=== PATIENT | male | born 1945 | race Caucasian/White ===

== ENCOUNTER 2019-02-03 08:12 | Inpatient (IN) | payer MEDICARE, OTHER ==
[~2019-02-03] VITALS: Ht 182.9 cm; Wt 83.9 kg
[~2019-02-03 08:12] MED LIST: ESOM20CA31 PO; HYDR-385 PO; HYDR-393 PO; LEVE250T63 PO; LEVE750T74 PO; LISI-362 PO; MULT-976 PO; ZOLP-1 PO
--- NOTE | 2019-02-03 08:15 | ER Report ---
History and Physical Time Seen By MD: 08:12 HPI/ROS CHIEF COMPLAINT: Abdominal pain, constipation HISTORY OF PRESENT ILLNESS: Patient is a 73-year-old male here with complaints of diffuse abdominal pain, constipation, inability to pass flatus since yesterday. Patient does have a history of appendectomy, cholecystectomy but denies prior history of bowel obstruction. Patient reports nausea and vomiting associated with his current symptoms. Patient is afebrile, hemodynamically stable at time of evaluation. REVIEW OF SYSTEMS: Constitutional: No fever, no chills. Eyes: No discharge. ENT: No sore throat. Cardiovascular: No chest pain, no palpitations. Respiratory: No cough, no shortness of breath. Gastrointestinal: Diffuse abdominal pain, nausea, vomiting Genitourinary: No hematuria. Musculoskeletal: No back pain. Skin: No rashes. Neurological: No headache. Allergies: Coded Allergies: No Known Drug Allergies (Unverified , 02/19/16) Home Meds Reported Medications Multivitamin (MULTIPLE VITAMINS) 1 Each Tablet, 1 EACH PO DAILY 02/11/16 Acetaminophen/Hydrocodone (HYDROCODON-ACETAMINOPHN 10-325) 1 Each Tab, 1-2 EACH PO Q4H PRN for PAIN, TAB 02/11/16 Esomeprazole Magnesium (NEXIUM) 20 Mg Capsule.dr, 1 CAP PO QDAY PRN for INDIGESTION, CAP 02/11/16 Lisinopril (LISINOPRIL) 10 Mg Tablet, 10 MG PO QDAY, TAB 02/11/16 Levetiracetam (KEPPRA) 750 Mg Tablet, 750 MG PO BID, TAB 02/11/16 Zolpidem Tartrate (AMBIEN) Unknown Strength Tablet, 1 TAB PO QHS, TAB 01/27/16 Hx Smoking: Yes (SMOKED 6 TO 8 YEARS, 1/2 PPD) Smoking Status: Never Smoker Exposure to Second Hand Smoke?: No Hx Alcohol Use: Yes Constitutional Vital Sign - Last 24 Hours 02/03/19 08:18 Temp 97.8 Pulse 94 Resp 16 B/P (MAP) 140/82 Pulse Ox 90 O2 Delivery Room Air Physical Exam General Appearance: The patient is alert, has no immediate need for airway protection and no signs of toxicity. Uncomfortable appearing Eyes: Pupils equal and round no pallor or injection. ENT, Mouth: Mucous membranes are moist. Respiratory: There are no retractions, lungs are clear to auscultation. Cardiovascular: Regular rate and rhythm. Gastrointestinal: Diffuse abdominal pain, mild distention, bowel sounds hypoactive Neurological: No focal neurological deficits on examination Skin: Warm and dry, no rashes. Musculoskeletal: Neck is supple non tender. Extremities are nontender, nonswollen and have full range of motion. DIFFERENTIAL DIAGNOSIS: After history and physical exam differential diagnosis was considered for abdominal pain including but not limited to appendicitis, cholecystitis, gastritis and urinary tract infection. Bowel obstruction Medical Decision Making Data Points Result Diagram: 02/03/19 0840 02/03/19 0840 Laboratory Hematology Test 02/03/19 08:40 White Blood Count 10.2 k/uL (4.5-11.0) Red Blood Count 4.43 M/uL (4.00-5.60) Hemoglobin 14.8 g/dL (14.0-18.0) Hematocrit 42.8 % (42.0-52.0) Mean Corpuscular Volume 96.5 fL (80.0-96.0) H Mean Corpuscular Hemoglobin 33.3 pg (26.0-33.0) H Mean Corpuscular Hemoglobin Concent 34.5 g/dL (32.0-36.0) Red Cell Distribution Width 13.5 % (11.5-14.5) Platelet Count 245 K/uL (150-450) Mean Platelet Volume 7.3 fL (7.2-11.1) Neutrophils (%) (Auto) 92.2 % (39.4-72.5) H Lymphocytes (%) (Auto) 3.7 % (17.6-49.6) L Monocytes (%) (Auto) 3.8 % (4.1-12.4) L Eosinophils (%) (Auto) 0.1 % (0.4-6.7) L Basophils (%) (Auto) 0.2 % (0.3-1.4) L Nucleated RBC Relative Count (auto) 0.1 /100WBC Neutrophils # (Auto) 9.4 K/uL (2.0-7.4) H Lymphocytes # (Auto) 0.4 K/uL (1.3-3.6) L Monocytes # (Auto) 0.4 K/uL (0.3-1.0) Eosinophils # (Auto) 0.0 K/uL (0.0-0.5) Basophils # (Auto) 0.0 K/uL (0.0-0.1) Nucleated RBC Absolute Count (auto) 0.01 K/uL Chemistry Test 02/03/19 08:40 Sodium Level 139 mmol/L (137-145) Potassium Level 4.8 mmol/L (3.5-5.0) Chloride Level 99 mmol/L (98-107) Carbon Dioxide Level 27 mmol/L (22-30) Blood Urea Nitrogen 27 mg/dl (9-21) Creatinine 1.60 mg/dl (0.66-1.25) Glomerular Filtration Rate Calc 42.8 Random Glucose 169 mg/dl (75-110) Lactate 2.0 mmol/L (0.7-2.1) Calcium Level 10.5 mg/dl (8.4-10.2) Total Bilirubin 1.1 mg/dl (0.2-1.3) Aspartate Amino Transf (AST/SGOT) 49 U/L (0-35) Alanine Aminotransferase (ALT/SGPT) 54 U/L (0-56) Alkaline Phosphatase 70 U/L (0-126) Total Protein 8.3 g/dl (6.3-8.2) Albumin 5.0 g/dl (3.5-5.0) Lipase 263 U/L (23-300) Urinalysis Test 02/03/19 08:13 Urine Color Anna Urine Clarity Slightly-cloudy Urine pH 5.0 pH (4.8-9.5) Urine Specific Dyer 1.030 Urine Protein 30 mg/dL (NEGATIVE) Urine Glucose (UA) Negative mg/dL (NEGATIVE) Urine Ketones Trace mg/dL (NEGATIVE) Urine Blood Negative (NEGATIVE) Urine Nitrite Negative (NEGATIVE) Urine Bilirubin Negative (NEGATIVE) Urine Urobilinogen Negative mg/dL (0.2-1.9) Urine Leukocyte Esterase Negative (NEGATIVE) Urine RBC 2 /HPF (0-2/HPF) Urine WBC 4 /HPF (0-5/HPF) Urine Squamous Epithelial Cells Few /LPF (</=FEW) Urine Bacteria Negative /HPF (NONE-FEW) Urine Hyaline Casts Few /LPF (NONE-FEW) Urine Mucus Few /HPF (NONE-FEW) EKG/Imaging Imaging Please see official radiology report. High-grade small bowel obstruction in the distal small bowel was identified ED Course/Re-evaluation ED Course Patient is a 73-year-old male here with complaints of diffuse abdominal pain, nausea, vomiting since yesterday. Patient is also complaining of obstipation, inability to keep down food or fluids. Patient is given IV fluid hydration, a nalgesia. CT imaging confirmed a high-grade small bowel obstruction with transition point in the distal small bowel. NG tube was placed for gastric decompression. I discussed the patient with Dr. Coffman who admitted the patient to surgery service for further treatment and care. I updated the patient regarding these findings. Rectal examination was completed and no masses were palpated in the distal rectum. Patient was hemodynamically stable at time of admission. Decision to Disposition Date: Feb 03, 2019 Decision to Disposition Time: 10:29 Depart Departure Latest Vital Signs Vital Signs Date Time Temp Pulse Resp B/P (MAP) Pulse Ox O2 Delivery O2 Flow Rate FiO2 02/03/19 08:18 97.8 94 16 140/82 90 Room Air Impression: Primary Impression: Small bowel obstruction Condition: Improved Disposition: Admitted from ER Referrals: STEVEN SILVA PA-C (PCP) ROHIT GRAVES DO Feb 03, 2019 08:15
[2019-02-03] MEDS ORDERED: NS(*) 0.9% 1000 ML BAG 1,000 ML IV ONE ×2 (08:26→11:20)
[2019-02-03] MEDS ORDERED: ONDANSETRON 4 MG/2 ML VIAL IVP ONE (08:30)
[2019-02-03] MEDS ORDERED: fentaNYL CITR 100 MCG/2 ML AMP IVP ONE (08:30)
[2019-02-03] MEDS ORDERED: IOPAMIDOL 76% 100 ML INFUS BTL 100 ML ONE (08:47)
[2019-02-03 08:54] LABS: PLATELET COUNT, AUTOMATED 245 K/uL (150-450)
[2019-02-03] MEDS ORDERED: HYDROMORPHONE HCL 1 MG/ML SYRINGE IVP ONE (10:00)
--- NOTE | 2019-02-03 10:30 | RADIOLOGY IMAGING REPORT ---
[place] [facility] [place] NAME: Seven Gold : 1945 MR: [id number] V: [id number] EXAM DATE: ORDERING PHYSICIAN: ROHIT GRAVES TECHNOLOGIST: Location: [facility] Patient: Seven Gold : 1945 Visit/Account:[id number] Date of Sevice: 02/03/2019 CT ABDOMEN PELVIS W/ CON HISTORY:abd pain, constipation TECHNIQUE: CT abdomen and pelvis with intravenous contrast. Contiguous axial images of the abdomen and pelvis was performed from the lung bases to the symphysis pubis. One of the following dose optimization techniques was utilized in the performance of this exam: Autom ated exposure control; adjustment of the mA and/or kV according to the patient's size; or use of an i terative reconstruction technique. Specific details can be referenced in the facility's radiology C T exam operational policy. CONTRAST: 75 cc of Isovue-370 COMPARISON: None. FINDINGS: Visualized lung bases: Atherosclerotic changes of the coronary vessels is noted. Subpleural interst itial changes at lung bases suggest mild underlying interstitial lung disease. Hepatobiliary: Gallbladder is absent. The biliary tree is prominent and the common bile duct measur es 9 mm the pancreas. No visualized choledocholithiasis. Differential diagnosis includes postcholec ystectomy change versus ampullary stenosis. Please correlate with biliary enzymes. Spleen: Negative. Adrenals: Negative. Kidneys/: Benign cyst superior pole right kidney measures 18 mm. Tiny nonobstructing stone is not ed lower pole left kidney. Pancreas: Negative. GI: Postoperative changes are noted from gastric bypass. There is a high-grade distal small bowel o bstruction with some twisting of the mesentery and a transition point in the distal small bowel. Fin dings are best appreciated on the coronal images 36 through 45. Findings could reflect a volvulus ve rsus adhesions. Small bowel loops are dilated up to 3.5 cm. No perforation or free fluid. Recommen d surgical consultation for management. The colon is relatively decompressed. Vessels/spaces/nodes: Atherosclerotic calcification is noted. Bones/soft tissues: Degenerative changes are noted the spine. IMPRESSION: 1. High-grade distal small bowel obstruction with twisting of the central mesentery concerning for a volvulus versus adhesion. No perforation, free air or free fluid. Recommend surgical consultation for management. 2. Postoperative changes noted from gastric bypass procedure. 3. Gallbladder is absent. Bile ducts are prominent in the common bile duct measures 9 mm at the hea d of pancreas. Findings could reflect ampullary stenosis versus postcholecystectomy change. Please correlate with biliary enzymes. Results were called to ROHIT GRAVES at 02/03/2019 10:22 AM. Report Dictated By: Johnson Nash MD at 02/03/2019 10:09 AM Report E-Signed By: Johnson Nash MD at 02/03/2019 10:22 AM WSN:[email or web address]
--- NOTE | 2019-02-03 10:37 | Gen Surgery History & Physical ---
History of Present Illness Chief Complaint Nausea, vomiting, and obstipation History of Present Illness 73 year old male presents to [facility] ED with nausea, vomiting, and obstipation. He is s/p gastric bypass, cholecystectomy, and appendectomy. He was thoroughly evaluated by Dr. Dunham including a CT scan that shows diffusely dilated SB though no focal transition point is noted and gas and stool in colon. NO dysuria, fever, or chills. He does take Boswell regularly. History Problems: (1) R.I.N.D. syndrome (2) S/P gastric bypass (3) S/P appendectomy (4) S/P cholecystectomy (5) Seizure disorder (6) Hypertension (7) GERD (gastroesophageal reflux disease) Status: Chronic Home Meds Reported Medications Multivitamin (MULTIPLE VITAMINS) 1 Each Tablet, 1 EACH PO DAILY 02/11/16 Acetaminophen/Hydrocodone (HYDROCODON-ACETAMINOPHN 10-325) 1 Each Tab, 1-2 EACH PO Q4H PRN for PAIN, TAB 02/11/16 Esomeprazole Magnesium (NEXIUM) 20 Mg Capsule.dr, 1 CAP PO QDAY PRN for INDIGESTION, CAP 02/11/16 Lisinopril (LISINOPRIL) 10 Mg Tablet, 10 MG PO QDAY, TAB 02/11/16 Levetiracetam (KEPPRA) 750 Mg Tablet, 750 MG PO BID, TAB 02/11/16 Zolpidem Tartrate (AMBIEN) Unknown Strength Tablet, 1 TAB PO QHS, TAB 01/27/16 Allergies: Coded Allergies: No Known Drug Allergies (Unverified , 02/19/16) Review of Systems All Systems Reviewed/Normal: Yes, Except as Noted Gastrointestinal: Nausea, Vomiting, Constipation Exam General Appearance: Alert, Awake, No Acute Distress, Afebrile Neuro: No Gross deficits Eyes: PERRLA ENT: Moist Mucous Membranes Cardiovascular: Normal Rhythm & Peripheral Pulses Respiratory: No Respiratory Distress, Clear to Auscultation GI: Other (Abdomen distended,soft, quiet, minimally tender diffusely) : No CVA Tenderness Lymph: No Adenopathy Extremities: Soft and Non Tender Psych: Alert & Oriented X3, Appropriate Mood & Affect Medical Decision Making Data Points Result Diagram: 02/03/19 0840 02/03/19 0840 EKG / Imaging Imaging CT abdomen and pelvis-dilated SB with air fluid levels,no transition point appreciated. Assessment and Plan Problems: (1) Small bowel obstruction Status: Acute Assessment & Plan: Will admit for NGT decompression and IV hydration Gastrograffin SBFT in am Recheck labs in am Time Spent: < 30 min Venous Thromboembolism VTE Risk Physician Assess for VTE Risk: Yes Patient's VTE Risk: Low VTE Diagnostic Test 2 Days Prior to Admit: No Antithrombotics Is Pt On Any Antithrombotics?: No Prophylaxis Tx Contraindicated Pharmacological Contraindicati: Pt at Low Risk for VTE Mechanical Contraindications: Pt at Low Risk for VTE MEME ANDRES MD Feb 03, 2019 10:37
--- NOTE | 2019-02-03 11:29 | RADIOLOGY IMAGING REPORT ---
FACILITY: [facility] PATIENT NAME: Seven Gold : 1945 MR: [id number] V: [id number] EXAM DATE: ORDERING PHYSICIAN: ROHIT GRAVES TECHNOLOGIST: Location: [facility] [place] Patient: Seven Gold : 1945 Visit/Account:[id number] Date of Sevice: 02/03/2019 CHEST SINGLE AP INDICATION: ngt placement COMPARISON: None available FINDINGS: Heart size within normal limits. A nasogastric tube terminates within the stomach. There is no focal infiltrate or lobar consolidation. There is no pneumothorax or pleural effusion. IMPRESSION: 1. Nasogastric tube terminates within the stomach. 2. No acute cardiopulmonary process Report Dictated By: Felipe Barry at 02/03/2019 11:21 AM Report E-Signed By: Felipe Barry at 02/03/2019 11:22 AM WSN:[id number]
[2019-02-03] MEDS ORDERED: LEVETIRACETAM 500 MG/100 ML 100 ML IVPB ONE (11:35)
--- NOTE | 2019-02-03 11:54 | RADIOLOGY IMAGING REPORT ---
FACILITY: [facility] - [place] PATIENT NAME: Seven Gold : 1945 MR: [id number] V: [id number] EXAM DATE: ORDERING PHYSICIAN: MEME ANDRES TECHNOLOGIST: Location: [facility] - [place] Patient: Seven Gold : 1945 Visit/Account:[id number] Date of Sevice: 02/03/2019 CHEST SINGLE AP AP upright portable 11:20 AM COMPARISON: 02/03/2019 11:02 AM HISTORY: NGT placement FINDINGS: CARDIAC/VASC: No cardiac silhouette abnormality or cardiomegaly. Unremarkable pulmonary vasculatu re. MEDIASTINUM: Granulomatous calcification at the left pulmonary hilum indicative of previous healed i nfection. Mild atherosclerotic aortic arch calcifications. LUNGS/PLEURA: No pneumothorax. No significant pulmonary parenchymal abnormalities. No costophrenic angle blunting to suggest a large effusion. BONES: No fracture or visible bony lesion. Lateral endplate spurring, thoracic spine. OTHER: Nasogastric tube tip unchanged in position, proximal stomach, just distal to the gastric cardi a. There are cholecystectomy clips in the right upper quadrant. IMPRESSION: Stable position of the nasogastric tube compared to earlier today, tip in the proximal stomach just d istal to the gastric cardia. Report Dictated By: Ari Dietz at 02/03/2019 11:45 AM Report E-Signed By: Ari Dietz at 02/03/2019 11:46 AM WSN:[id number]
--- NOTE | 2019-02-03 12:00 | NUR ---
Per Carolyne TERRAZAS to bring meds in d/t patient unsure of doses Addendum: 02/03/19 at 2056 by ZAKI GUPTA RN Amended: Links added.
[2019-02-03] MEDS ORDERED: MORPHINE 2 MG/ML SYR IVP PRN (13:15)
--- NOTE | 2019-02-03 13:34 | NUR ---
NG Placed in ED at 53cm. Arrived to floor at 35cm, unable to auscultate. Advanced to 53cm, auscultated, taped to nose. notified, did not want another x-ray to confirm placement as he knows 53cm is correct. Addendum: 02/03/19 at 1336 by ZAKI GUPTA RN Amended: Links added.
[2019-02-03] MEDS ORDERED: HYDROMORPHONE HCL 1 MG/ML SYRINGE IVP PRN (15:05)
[2019-02-03] MEDS ORDERED: LIDOCAINE 5% PATCH TP SCH (15:05)
[2019-02-03] MEDS: KCL/DNS 20 MEQ/1000 ML PREMIX 1,000 ML IV PRN (15:42)
[2019-02-03 16:00] VITALS: BP 124/62
[2019-02-03] MEDS: HYDROmorphone* 1 MG/ML 1 MG/ML ML IVP PRN ×2 (16:12→20:22)
[2019-02-03 19:30] VITALS: BP 149/82
[2019-02-03] MEDS: LEVETIRACETAM 500 MG/100 ML 100 ML IVPB SCH (20:45)
[2019-02-03] MEDS: PATCH REMOVAL 1 EA TP SCH (20:45)
[2019-02-03] MEDS ORDERED: diphenhydrAMINE 50 MG/ML VIAL IVP PRN (22:15)
[2019-02-03 23:47] VITALS: BP 157/82
[2019-02-04] VITALS (10 sets, daily range): BP systolic 77–146; BP diastolic 64–88
[2019-02-04] MEDS ORDERED: BENZOCAINE/TETRACAINE/BUTAMBEN ONE (00:09)
--- NOTE | 2019-02-04 00:15 | NUR ---
Per Patient NG tube "fell out after sneezing fit". NG tube reinserted into right nare and auscultated for correct placement at 53cm per provider telephone order. Provider called for order for chest xray to verify correct placement. Provider did not order x-ray for placement d/t xray scheduled at 0500 this morning. Patient complained of chest pain and shortness of breath, so stat xray was ordered. NG removed due to incorrect placement. Patient refused to have another NG tube placed until morning so he could sleep. Patient wanted to be left alone for the rest of the night and refused vitals and reinsertion of NG tube. Provider notified of patient wishes.
--- NOTE | 2019-02-04 00:30 | RADIOLOGY IMAGING REPORT ---
FACILITY: [facility] PATIENT NAME: Seven Gold : 1945 MR: [id number] V: [id number] EXAM DATE: ORDERING PHYSICIAN: MEME ANDRES TECHNOLOGIST: Location: [facility] Patient: Seven Gold : 1945 Visit/Account:[id number] Date of Sevice: 02/03/2019 Study: Single portable view of the chest. Indication: Nasogastric tube placement. Comparison study: None. Technique: Single AP view of the chest demonstrates no evidence of acute infiltrate. There is no evid ence of pleural effusion or pneumothorax. The mediastinal, cardiac, and diaphragmatic contours are un remarkable. There is a nasogastric tube present. The tip of the catheter is within a right lower lobe pulmonary b ronchus. The report was called into the patient's nurse, the nasogastric tube had already been withdrawn. IMPRESSION: Nasogastric tube within bronchial system. No evidence of acute cardiopulmonary abnormalit y. Report Dictated By: Francis Salmon at 02/04/2019 12:19 AM Report E-Signed By: Francis Salmon at 02/04/2019 12:23 AM WSN:[id number]
[2019-02-04] MEDS: HYDROmorphone* 1 MG/ML 1 MG/ML ML IVP PRN ×3 (00:31→13:02)
[2019-02-04] MEDS: ONDANSETRON 4 MG/2 ML VIAL IVP PRN ×3 (00:38→13:04)
[2019-02-04] MEDS: KCL/DNS 20 MEQ/1000 ML PREMIX 1,000 ML IV PRN ×3 (00:38→23:39)
[2019-02-04 05:11] LABS: PLATELET COUNT, AUTOMATED 198 K/uL (150-450)
--- NOTE | 2019-02-04 07:18 | RADIOLOGY IMAGING REPORT ---
FACILITY: [facility] - [place] PATIENT NAME: Seven Gold : 1945 MR: [id number] V: [id number] EXAM DATE: ORDERING PHYSICIAN: MEME ANDRES TECHNOLOGIST: Location: [facility] - [place] Patient: Seven Gold : 1945 Visit/Account:[id number] Date of Sevice: 02/04/2019 ADDENDUM #1 ADDENDUM: Plain x-rays were obtained for this study. The plain x-rays right. This is a report for the small bow el follow-through. INDICATION: Small bowel obstruction. FINDINGS: Dry Plasterer Helper image shows multiple dilated loops of small bowel. Patient was administered oral cont rast. Sequential imaging of the abdomen was obtained. Contrast does move through the small bowel. How ever after 2 1/2 hours there is still contrast in the small bowel loops to the mid part of the distal small bowel. No contrast seen in the colon. A 7.15 hour film was obtained. There is contrast seen wi thin the small bowel and in the distal portion the small bowel. However no definite contrast is seen in the right colon. IMPRESSION: Small bowel obstruction, likely in the distal aspect of the distal small bowel. No defini te contrast is seen in the right colon at 7.15 hour. I called report to MEME ANDRES at 02/04/2019 4:54 PM. Report Dictated By: Johnson Langston at 02/04/2019 4:47 PM Report E-Signed By: Johnson Langston at 02/04/2019 4:56 PM ORIGINAL REPORT Study: XR SMALL BOWEL SERIES Indication: Pain Comparison study: None available Findings: Upright and supine views of the abdomen demonstrates the presence of numerous dilated loops of small bowel. There are differential air-fluid levels present. This is most consistent with a smal l bowel obstruction. There is no evidence of pneumoperitoneum. The patient is status post abdominal surgery. IMPRESSION: Study consistent with small bowel obstruction. There is no evidence of pneumoperitoneum. Report Dictated By: Francis Salmon at 02/04/2019 6:58 AM Report E-Signed By: Francis Salmon at 02/04/2019 7:11 AM WSN:[id number]
--- NOTE | 2019-02-04 07:28 | RADIOLOGY IMAGING REPORT ---
FACILITY: [facility] PATIENT NAME: Seven Gold : 1945 MR: [id number] V: [id number] EXAM DATE: ORDERING PHYSICIAN: MEME ANDRES TECHNOLOGIST: Location: [facility] - [place] Patient: Seven Gold : 1945 Visit/Account:[id number] Date of Sevice: 02/04/2019 Study: Upright and supine views of the abdomen Indication:Abdominal pain Comparison: None Findings: Upright and supine views of the abdomen demonstrates presence of numerous dilated loops of small bowel with differential air-fluid levels. This is consistent with a small bowel obstruction. Th ere is no evidence of pneumoperitoneum. The patient is status post epigastric surgery, cholecystectomy and surgery within the right lower kristin drant. There is no evidence of significant bony abnormality. IMPRESSION: Study consistent with small bowel obstruction. There is no evidence of pneumoperitoneum. Report Dictated By: Francis Salmon at 02/04/2019 7:20 AM Report E-Signed By: Francis Salmon at 02/04/2019 7:21 AM WSN:[id number]
[2019-02-04] MEDS ORDERED: DIATRIZOATE MEGL/DIATRIZOA SOD 367 MG/ML SOLN ONE ×2 (07:38→07:44)
[2019-02-04] MEDS: LEVETIRACETAM 500 MG/100 ML 100 ML IVPB SCH ×2 (08:52→22:21)
[2019-02-04] MEDS: ENOXAPARIN 40 MG/0.4ML SYR SC SCH (09:07)
[2019-02-04] MEDS: PATCH REMOVAL 1 EA TP SCH (09:13)
--- NOTE | 2019-02-04 10:12 | General Surgery Progress Note ---
Subjective Progress Notes Subjective "I feel miserable" No flatus or BM. Denies any vomiting since admission. His NGT came out and he refuses to have another. Refused David. Patient Complains of: Gastrointestinal: Nausea Musculoskeletal: Other (chronic back pain) Physical Exam Vital Signs Date Time Temp Pulse Resp B/P (MAP) Pulse Ox O2 Delivery O2 Flow Rate FiO2 02/04/19 08:04 98.0 70 17 132/88 (103) 91 Room Air 02/03/19 23:47 1.0 Intake and Output 02/04/19 07:03 Intake Total 1510 ml Output Total 925 ml Balance 585 ml Intake IV Total 1510 ml Output Urine Total 725 ml Gastric Drainage Total 200 ml General Appearance: Alert, Awake, No Acute Distress, Afebrile Neuro: No Gross deficits ENT: Moist Mucous Membranes Cardiovascular: Regular Rate and Rhythm Respiratory: No Respiratory Distress, Clear to Auscultation GI: Other (Abdomen remains distended and quiet, diffuse tenderness, no rebound or percussion tenderness) Extremities: Soft and Non Tender Psych: Alert & Oriented X3, Other (belligerent) Result Diagram: 02/04/19 0455 02/04/19 0455 Creatinine back to 1.0 Imaging SBFT in process Assessment and Plan Problems: (1) Small bowel obstruction Status: Acute Assessment & Plan: 02/03/19: Will admit for NGT decompression and IV hydration. Gastrograffin SBFT in am. Recheck labs in am. 02/04/19: Patient reports NGT came out last night when he sneezed. Refused to have another put in. No further vomiting, but remains nauseated without any flatus or BM. He did not like morphine, so switched to Dilaudid for his chronic back pain for which he routinely takes 6 Sawyer per day for past several years. He does appear better hydrated with IVF's with creatinine back to 1.0 from 1.6. Urine output improved. He has no peritoneal signs at this time. WBC is WNL. The SBFT is in progress. I discussed in detail with Seven that if this does not resolve with nonoperative management that surgery will indeed be needed. We discussed the typical causes of mechanical obstruction as well as the fact his chronic narcotic use may be playing a role. I encouraged him to try to walk several times today. Will continue close observation through out the day. If no contrast to colon by 8 hours or if peritoneal signs develop then I will recommend exploratory laparotomy. (2) Seizure disorder Status: Chronic Assessment & Plan: Continue his Keppra IV until able to take PO again. Time Spent: > 30 min Exam Sepsis Risk: No Definite Risk MEME ANDRES MD Feb 04, 2019 10:12
--- NOTE | 2019-02-04 10:48 | Medical Nutrition Therapy ---
Nutrition Anthropometrics Height (Inches): 72.00 Height (Calculated Centimeters: 182.334212 Weight (Pounds): 169 Weight (Calculated Kilograms): 76.657 Duane Nutrition Score: Adequate Duane Nutrition Risk Score: 19 Dietary Referral Nutrition Risk Factors: Nutrition Risk Comment: Physical Findings Physical Appearance: 22.9kg/m2 Skin Appearance Skin Appearance: Edema Edema Location Modifier: Edema Location: Type of Edema: Degree of Edema: Gastrointestinal Symptoms GI Symtoms: Constipation, Change in Bowel Pattern Tube Present: NG Bowel Sounds: Recent Bowel Pattern: Stool Characteristics: Nutritional Diagnosis Nutritional Risk Acuity 1: GI Obstruction Past Medical History: RIND, gastric bypass, appendectomy, cholecystectomy, seizure disorder, HTH, and GERD. Nutritional Acuity: 1-High Nutrition Diagnosis: Altered GI Function Nutrition Etiology: Physiological Causes Nutrition Problem/Etiology/Sym: Altered GI function as related to physiological causes as evidenced by SBO. Energy Requirement: 2045 (m st jeor x 1.1 x1.2) Protein Requirement: 60.8 (0.8 g/kg) Fluid Requirement: 2045 (1ml/1kcal) Diet Type: NPO/Ice Chips Only Nutrition Monitoring & Eval Nutritional Goals Comment: Progress to BABITA as tolerated. RD Patient Assessment Time: [address] Assessment Type: RD Assessment Patient Nutrition Acuity: 1-High Follow Up Date: Feb 06, 2019 Nutritional Comment: pt admitted with N/V/obstipation. Dx with small bowel obstruction. Hx of RIND, gastric bypass, appendectomy, cholecystectomy, seizure disorder, HTH, and GERD. Currently NPO/Ice chips only day 1. Pt taking enoxaparin. BUN and creatinine were elevated but have decreased to WNL. CRP of 1.0 is elevated, as is AST of 38. Total protein of 5.8 and albumin of 3.4 are decreased. Monitor for progression of diet. -HAYDEN BUTTS Feb 04, 2019 10:48
[2019-02-04] MEDS ORDERED: TAMS0.4C25 PO (11:11)
[2019-02-04] MEDS ORDERED: ZOLP12.548 PO (11:11)
[2019-02-04] MEDS ORDERED: ZOLP-350 PO (11:11)
[2019-02-04] MEDS ORDERED: LAMO100T5 PO (11:11)
[2019-02-04] MEDS ORDERED: DOXE10CA25 PO (11:11)
[2019-02-04] MEDS ORDERED: BISACODYL 10 MG SUPP ONE (16:14)
[2019-02-04] MEDS ORDERED: BISACODYL 10 MG SUPP PR ONE (16:15)
[2019-02-04] MEDS ORDERED: FAMOTIDINE(*) 20MG/50ML PREMIX 50 ML IVPB ONE (17:05)
[2019-02-04] MEDS ORDERED: NORMOSOL R SOLN(*) 1000 ML BAG 1,000 ML IV ONE (17:05)
--- NOTE | 2019-02-04 17:13 | General Surgery Progress Note ---
Subjective Progress Notes Subjective Still no flatus or BM, now with increasing abdominal pain Physical Exam Vital Signs Date Time Temp Pulse Resp B/P (MAP) Pulse Ox O2 Delivery O2 Flow Rate FiO2 02/04/19 15:50 98.6 93 20 132/80 (97) 88 Room Air 02/04/19 11:02 1.0 Intake and Output 02/04/19 07:03 Intake Total 1510 ml Output Total 925 ml Balance 585 ml Intake IV Total 1510 ml Output Urine Total 725 ml Gastric Drainage Total 200 ml General Appearance: Alert, Awake, Afebrile GI: Other (Abdomen more distended, generalized tenderness, some percussion tenderness now, BS quiet) Result Diagram: 02/04/19 0455 02/04/19 0455 Assessment and Plan Problems: (1) Small bowel obstruction Status: Acute Assessment & Plan: 02/03/19: Will admit for NGT decompression and IV hydration. Gastrograffin SBFT in am. Recheck labs in am. 02/04/19: Patient reports NGT came out last night when he sneezed. Refused to have another put in. No further vomiting, but remains nauseated without any flatus or BM. He did not like morphine, so switched to Dilaudid for his chronic back pain for which he routinely takes 6 [place] per day for past several years. He does appear better hydrated with IVF's with creatinine back to 1.0 from 1.6. Urine output improved. He has no peritoneal signs at this time. WBC is WNL. The SBFT is in progress. I discussed in detail with Seven that if this does not resolve with nonoperative management that surgery will indeed be needed. We discussed the typical causes of mechanical obstruction as well as the fact his chronic narcotic use may be playing a role. I encouraged him to try to walk several times today. Will continue close observation through out the day. If no contrast to colon by 8 hours or if peritoneal signs develop then I will recommend exploratory laparotomy. 02/04/19: Gastrografin SBFT carried out to 71/2 hours without contrast to colon. In light of this finding and increased tenderness I have recommended to Seven that we proceed with exploratory laparotomy, lysis of adhesions, and indicated procedures. He understands this may include the need for a bowel resection. I have reviewed the procedure, risks, and possible complications in detail with him. He understands he will have a NG tube and David catheter in place when he awakens from anesthesia. Informed consent obtained. OR crew and anesthesia notified by oracle data warehouse developer. Zosyn 4.5 grams IVPB ordered. (2) Seizure disorder Status: Chronic Assessment & Plan: Continue his Keppra IV until able to take PO again. Time Spent: > 30 min Exam Sepsis Risk: No Definite Risk MEME ANDRES MD Feb 04, 2019 17:13
[2019-02-04] MEDS ORDERED: fentaNYL CITR 250 MCG/5 ML AMP ONE (17:39)
[2019-02-04] MEDS ORDERED: PROPOFOL EMUL(*) 10MG/ML 20 ML 20 ML ONE (17:40)
[2019-02-04] MEDS ORDERED: LIDOCAINE 2% IV 100 MG/5ML SYR ONE (17:40)
[2019-02-04] MEDS ORDERED: ROCURONIUM BR 10 MG/ML 5 ML SY 5 ML ONE ×2 (17:41→18:34)
[2019-02-04] MEDS ORDERED: SUCCINYLCHOL CHL 100MG/5ML SYR IVP ONE (17:41)
[2019-02-04] MEDS ORDERED: PIPERACILLIN/TAZO* 4.5 GM VIAL 4.5 GM in NS(*) 0.9% 100 ML MINI-BAG 100 ML IVPB ONE (18:00)
[2019-02-04] MEDS ORDERED: ONDANSETRON 4 MG/2 ML VIAL ONE (18:06)
[2019-02-04] MEDS ORDERED: DEXAMETHASONE SOD 4 MG/ML VIAL ONE (18:06)
[2019-02-04] MEDS ORDERED: KETAMINE HCL 200 MG/20 ML MDV ONE ×2 (18:09→19:11)
[2019-02-04] MEDS ORDERED: SUGAMMADEX SOD 200 MG/2 ML SDV ONE (18:10)
[2019-02-04] MEDS ORDERED: HYDROmorphone HCL 2 MG/ML SDV ONE (18:28)
[2019-02-04] MEDS ORDERED: ACETAMINOPHEN(*)1000 MG/100 ML 100 ML IVPB ONE (19:56)
--- NOTE | 2019-02-04 20:16 | Post Operative Progress Note ---
Post Operative Progress Note Date: Feb 04, 2019 Time: 20:11 Surgeon: Augustus Tool Repair Technician: PRAVEEN Mckinney Anesthesia: MD Jerad Pre-Op Diagnosis: SBO Post-Op Diagnosis: same secondary to adhesions Findings: Dense adhesive band across distal ileum Procedure(s): Exploratory laparotomy and lysis of adhesions Specimen Removed:(May be N/A): none Complications: none Fluids: 2000ml Estimated Blood Loss: 50 ml EBL, 3500 ml of NG output Date OP Note Dictated: Feb 04, 2019 Time OP Note Dictated: 20:13 MEME ANDRES MD Feb 04, 2019 20:16
[2019-02-04] MEDS ORDERED: MEPERIDINE HCL 50 MG/ML SDV 50 MG/ML VIAL ONE (20:20)
[2019-02-04] MEDS ORDERED: fentaNYL CITR 100 MCG/2 ML AMP ONE (20:42)
[2019-02-04] MEDS ORDERED: LIDOCAINE 5% PATCH TP SCH (21:00)
[2019-02-04] MEDS: HYDROMORPHON PCA10MG/50ML(CII) 10 MG/50 ML PLAST..BAG IV PRN (21:45)
--- NOTE | 2019-02-04 21:55 | OPERATIVE REPORT 1 ---
EVENT DATE: February 04, 2019 SURGEON: Jim Coffman MD ANESTHESIOLOGIST: Oswald Aviles MD ANESTHESIA: General endotracheal anesthesia. PREOPERATIVE DIAGNOSIS Small bowel obstruction. POSTOPERATIVE DIAGNOSIS Small bowel obstruction secondary to adhesions. PROCEDURES PERFORMED 1. Exploratory laparotomy. 2. Lysis of adhesions. PROCEDURE IN DETAIL Mr. Gold was taken to the operating room and placed in the supine position. After induction of adequate general endotracheal anesthesia, a David catheter was placed. The abdomen was then prepped and draped in the usual sterile fashion. Timeout was taken. The patient had received Zosyn 4.5 g IV prior to surgery. Attention was then turned to the midline where a midline incision was made through the skin and subcutaneous tissue. This was carried down to midline fascia. The midline fascia was then incised. Using Leslie clamps to retract the fascia superiorly and anteriorly, the peritoneum was entered. The peritoneum was opened with Bovie cauterization. The bowel was markedly distended. Very carefully the bowel was slowly eviscerated from the peritoneal cavity. There was obvious obstruction involving the distal ileum. There was a dense adhesive band between the root of mesentery where the Hussein limb was going up in an antecolic fashion. This was taken down with Bovie cauterization. In addition, an adhesive band between the site of previous appendectomy and root of mesentery was taken down. This then freed this point of obstruction. A nasogastric tube was then inserted by Anesthesia. This was positioned down through the gastric pouch and Hussein limb. The small bowel was gradually decompressed with 3500 mL of succus evacuated via the nasogastric tube. With the small bowel decompressed, a general exploration was then begun at the ligament of Treitz. The Hussein-en-y limb appeared viable. The afferent portion of this was also noted to be decompressed. The small bowel was then run distally, and the point of obstruction was noted to be completely freed with free flow of succus beyond this into the cecum. The colon was carefully palpated. There was no evidence of colon masses appreciated. The colon appeared to pass easily under this Hussein limb. Attention was then turned to the Hussein limb, which was carefully run up to the gastric pouch. This also appeared now decompressed and viable. The peritoneal cavity was then irrigated with several liters of saline. Adequate hemostasis was confirmed. The cecum was carefully placed back in the right lower quadrant, and the small bowel was then returned to the peritoneal cavity in its anatomic fashion with no twists. The fascia was then closed with a simple running #1 Prolene suture. Using 0.5% Marcaine with epinephrine, the anterior abdominal wall was infiltrated with local anesthesia for postop pain control. The skin and subcutaneous tissue were irrigated. Adequate hemostasis confirmed. The skin was reapproximated with yosef. Sterile dressing was applied. Final sponge, instrument, and needle counts were correct times two. Mr. Gold tolerated this well, was taken to the PACU in stable condition. He will be admitted back to the Med/Surg Unit for continued postoperative care. RUTHANN
[2019-02-05 02:00] VITALS: BP 113/72
[2019-02-05] MEDS: ACETAMINOPHEN(*)1000 MG/100 ML 100 ML IVPB SCH ×5 (02:44→23:44)
[2019-02-05 03:00] VITALS: BP 103/75
[2019-02-05 05:52] LABS: PLATELET COUNT, AUTOMATED 195 K/uL (150-450)
[2019-02-05 05:56] VITALS: BP 111/70
[2019-02-05] MEDS: KCL/DNS 20 MEQ/1000 ML PREMIX 1,000 ML IV PRN ×3 (07:21→22:28)
[2019-02-05] MEDS ORDERED: PATCH REMOVAL 1 EA TP SCH (09:00)
[2019-02-05 09:31] VITALS: BP 123/73
[2019-02-05] MEDS: ENOXAPARIN 40 MG/0.4ML SYR SC SCH (09:41)
[2019-02-05] MEDS: PANTOPRAZOLE SOD 40 MG IV VIAL IVP SCH (09:41)
[2019-02-05] MEDS: LEVETIRACETAM 500 MG/100 ML 100 ML IVPB SCH ×2 (09:41→20:43)
--- NOTE | 2019-02-05 10:43 | General Surgery Progress Note ---
Subjective Progress Notes Subjective Feeling better, no new complaints. Physical Exam Vital Signs Date Time Temp Pulse Resp B/P (MAP) Pulse Ox O2 Delivery O2 Flow Rate FiO2 02/05/19 09:31 98.5 74 16 123/73 (90) 97 Nasal Cannula 2.0 Intake and Output 02/05/19 07:03 Intake Total 5235 ml Output Total 550 ml Balance 4685 ml Intake IV Total 5205 ml Tube Irrigant 30 ml Output Urine Total 550 ml # Voids 1 General Appearance: Alert, Awake, No Acute Distress, Afebrile Neuro: No Gross deficits ENT: Moist Mucous Membranes Cardiovascular: Normal Rhythm & Peripheral Pulses Respiratory: No Respiratory Distress, Clear to Auscultation GI: Other (Abdomen is flat and soft, expected incisional tenderness, BS present. Incision covered with dressing c/d/i.) Extremities: Soft and Non Tender Psych: Alert & Oriented X3 Result Diagram: 02/05/1951402/05/19514 Assessment and Plan Problems: (1) Small bowel obstruction Status: Acute Assessment & Plan: 02/03/19: Will admit for NGT decompression and IV hydration. Gastrograffin SBFT in am. Recheck labs in am. 02/04/19: Patient reports NGT came out last night when he sneezed. Refused to have another put in. No further vomiting, but remains nauseated without any flatus or BM. He did not like morphine, so switched to Dilaudid for his chronic back pain for which he routinely takes 6 [place] per day for past several years. He does appear better hydrated with IVF's with creatinine back to 1.0 from 1.6. Urine output improved. He has no peritoneal signs at this time. WBC is WNL. The SBFT is in progress. I discussed in detail with Seven that if this does not resolve with nonoperative management that surgery will indeed be needed. We discussed the typical causes of mechanical obstruction as well as the fact his chronic narcotic use may be playing a role. I encouraged him to try to walk several times today. Will continue close observation through out the day. If no contrast to colon by 8 hours or if peritoneal signs develop then I will recommend exploratory laparotomy. 02/04/19: Gastrografin SBFT carried out to 71/2 hours without contrast to colon. In light of this finding and increased tenderness I have recommended to Seven that we proceed with exploratory laparotomy, lysis of adhesions, and indicated procedures. He understands this may include the need for a bowel resection. I have reviewed the procedure, risks, and possible complications in detail with him. He understands he will have a NG tube and David catheter in place when he awakens from anesthesia. Informed consent obtained. OR crew and anesthesia notified by housekeeper/laundry assistant. Zosyn 4.5 grams IVPB ordered. 02/05/19: POD#1 s/p exp lap with lysis of adhesions. Doing well. Minimal NG output so NGT removed. Urine output adequate but will leave David for one more day.. Encouraged to use IS and to get OOB and ambulate at least QID. Recheck labs in am. (2) Seizure disorder Status: Chronic Assessment & Plan: Continue his Keppra IV until able to take PO again. Time Spent: < 30 min Exam Sepsis Risk: No Definite Risk MEME ANDRES MD Feb 05, 2019 10:43
[2019-02-05] MEDS: ONDANSETRON 4 MG/2 ML VIAL IVP PRN (13:56)
[2019-02-05] MEDS ORDERED: ZOLPIDEM TARTRATE 5 MG TAB PO PRN (17:30)
[2019-02-05] MEDS: HYDROMORPHON PCA10MG/50ML(CII) 10 MG/50 ML PLAST..BAG IV PRN (18:01)
[2019-02-05 20:33] VITALS: BP 136/86
[2019-02-05 23:37] VITALS: BP 141/83
[2019-02-06 03:07] VITALS: BP 121/68
[2019-02-06] MEDS: ACETAMINOPHEN(*)1000 MG/100 ML 100 ML IVPB SCH ×4 (05:49→23:32)
[2019-02-06] MEDS: KCL/DNS 20 MEQ/1000 ML PREMIX 1,000 ML IV PRN ×3 (05:58→17:28)
[2019-02-06 06:01] LABS: PLATELET COUNT, AUTOMATED 162 K/uL (150-450)
[2019-02-06 06:44] VITALS: BP 120/71
--- NOTE | 2019-02-06 08:32 | General Surgery Progress Note ---
Subjective Progress Notes Subjective Slept better last night with use of Ambien. No complaints. Physical Exam Vital Signs Date Time Temp Pulse Resp B/P (MAP) Pulse Ox O2 Delivery O2 Flow Rate FiO2 02/06/19 08:10 84 02/06/19 07:53 16 02/06/19 07:53 Nasal Cannula 1.0 02/06/19 06:44 98.4 70 120/71 (87) Intake and Output 02/06/19 07:03 Intake Total 4310.1 ml Output Total 1475 ml Balance 2835.1 ml Intake Oral 100 ml IV Total 4210.1 ml Output Urine Total 1275 ml Gastric Drainage Total 200 ml General Appearance: Alert, Awake, No Acute Distress, Afebrile Neuro: No Gross deficits ENT: Moist Mucous Membranes Cardiovascular: Normal Rhythm & Peripheral Pulses Respiratory: No Respiratory Distress, Clear to Auscultation GI: Soft and Non-Tender (other than expected incisional discomfort. Bowel sounds active. Incision with yosef intact, no evidence of infection.) Extremities: Soft and Non Tender Psych: Alert & Oriented X3 Result Diagram: 02/06/1951602/06/19516 Assessment and Plan Problems: (1) Small bowel obstruction Status: Acute Assessment & Plan: 02/03/19: Will admit for NGT decompression and IV hydration. Gastrograffin SBFT in am. Recheck labs in am. 02/04/19: Patient reports NGT came out last night when he sneezed. Refused to have another put in. No further vomiting, but remains nauseated without any flatus or BM. He did not like morphine, so switched to Dilaudid for his chronic back pain for which he routinely takes 6 [place] per day for past several years. He does appear better hydrated with IVF's with creatinine back to 1.0 from 1.6. Urine output improved. He has no peritoneal signs at this time. WBC is WNL. The SBFT is in progress. I discussed in detail with Seven that if this does not resolve with nonoperative management that surgery will indeed be needed. We discussed the typical causes of mechanical obstruction as well as the fact his chronic narcotic use may be playing a role. I encouraged him to try to walk several times today. Will continue close observation through out the day. If no contrast to colon by 8 hours or if peritoneal signs develop then I will recommend exploratory laparotomy. 02/04/19: Gastrografin SBFT carried out to 71/2 hours without contrast to colon. In light of this finding and increased tenderness I have recommended to Seven that we proceed with exploratory laparotomy, lysis of adhesions, and indicated procedures. He understands this may include the need for a bowel resection. I have reviewed the procedure, risks, and possible complications in detail with him. He understands he will have a NG tube and David catheter in place when he awakens from anesthesia. Informed consent obtained. OR crew and anesthesia notified by greenhouse manager. Zosyn 4.5 grams IVPB ordered. 02/05/19: POD#1 s/p exp lap with lysis of adhesions. Doing well. Minimal NG output so NGT removed. Urine output adequate but will leave David for one more day.. Encouraged to use IS and to get OOB and ambulate at least QID. Recheck labs in am. 02/06/19: POD#2 Continues to improve. No BM yet. Will limit to clear liquids until having bowel function. Will DC David. Decrease IVF to 100 ml/hr. En couraged again today to increase activity and ambulate at least 4 times today. Encouraged to continue to use IS. Labs look good. I explained to patient that Dr. Huizar will be taking over for me tomorrow. (2) Seizure disorder Status: Chronic Assessment & Plan: Continue his Keppra IV until able to take PO again. Time Spent: < 30 min Exam Sepsis Risk: No Definite Risk MEME ANDRES MD Feb 06, 2019 08:32
[2019-02-06] MEDS: PANTOPRAZOLE SOD 40 MG IV VIAL IVP SCH (09:12)
[2019-02-06] MEDS: ENOXAPARIN 40 MG/0.4ML SYR SC SCH (09:13)
[2019-02-06] MEDS: LEVETIRACETAM 500 MG/100 ML 100 ML IVPB SCH ×2 (09:13→21:17)
[2019-02-06] MEDS: HYDROMORPHON PCA10MG/50ML(CII) 10 MG/50 ML PLAST..BAG IV PRN ×2 (10:49→23:58)
[2019-02-06 11:06] VITALS: BP 145/86
--- NOTE | 2019-02-06 13:14 | Antimicrobial Stewardship ---
Antimicrobial Time Out Antimicrobial Stewardship MD Service: Other (SURGERY) Indications: Other (SBO) Antimicrobial Used ZOSYN 4.5G IV X 1 DOSE PREOP Start Date: Feb 04, 2019 Culture Results: N/A Eligible for PO Conversion Eligable for PO Conversion: No (ABX ONLY GIVEN FOR PRE-OP) Reviewed with Provider Reviewed w/ Provider on Rounds: JESSICA Streeter Feb 06, 2019 13:14
--- NOTE | 2019-02-06 13:50 | Medical Nutrition Therapy ---
Nutrition Anthropometrics Height (Inches): 72.00 Height (Calculated Centimeters: [phone] Weight (Pounds): 169 Weight (Calculated Kilograms): 76.657 [place] Nutrition Score: Adequate [place] Nutrition Risk Score: 20 Dietary Referral Nutrition Risk Factors: Nutrition Risk Comment: Physical Findings Physical Appearance: 22.9kg/m2 Skin Appearance Skin Appearance: Edema Edema Location Modifier: Edema Location: Type of Edema: Degree of Edema: Gastrointestinal Symptoms GI Symtoms: Change in Bowel Pattern Tube Present: NG Bowel Sounds: Recent Bowel Pattern: Stool Characteristics: Nutritional Diagnosis Nutritional Risk Acuity 1: GI Obstruction Past Medical History: RIND, gastric bypass, appendectomy, cholecystectomy, seizure disorder, HTH, and GERD. Nutritional Acuity: 1-High Nutrition Diagnosis: Altered GI Function Nutrition Etiology: Physiological Causes Nutrition Problem/Etiology/Sym: Altered GI function as related to physiological causes as evidenced by SBO. Energy Requirement: 2045 (m st jeor x 1.1 x1.2) Protein Requirement: 60.8 (0.8 g/kg) Fluid Requirement: 2045 (1ml/1kcal) Diet Type: NPO/Ice Chips Only Nutrition Monitoring & Eval RD Patient Assessment Time: [address] Assessment Type: RD Assessment Patient Nutrition Acuity: 1-High Follow Up Date: Feb 06, 2019 Nutritional Comment: pt admitted with N/V/obstipation. Dx with small bowel obstruction. Hx of RIND, gastric bypass, appendectomy, cholecystectomy, seizure disorder, HTH, and GERD. Currently NPO/Ice chips only day 1. Pt taking enoxaparin. BUN and creatinine were elevated but have decreased to WNL. CRP of 1.0 is elevated, as is AST of 38. Total protein of 5.8 and albumin of 3.4 are decreased. Monitor for progression of diet. -AKG 02/06/19-Spoke with pt this afternoon. Pt typically eats 2 meals/day at home with snacks. His typical weight is 168-170 lbs, no recent changes in weight. Spoke with pt about following a low fiber diet and discussed appropriate foods. Will provide diet education handout for low fiber diet prior to discharge. Will continue to monitor bowel function and diet advancement.TRINO GREGORY Feb 06, 2019 13:50
[2019-02-06 15:00] VITALS: BP 131/79
[2019-02-06 20:03] VITALS: BP 131/79
[2019-02-07] VITALS (7 sets, daily range): BP systolic 114–144; BP diastolic 63–85
[2019-02-07] MEDS: ZOLPIDEM TARTRATE 5 MG TAB PO PRN ×4 (00:36→23:54)
[2019-02-07] MEDS: KCL/DNS 20 MEQ/1000 ML PREMIX 1,000 ML IV PRN ×2 (04:21→15:14)
[2019-02-07] MEDS: ACETAMINOPHEN(*)1000 MG/100 ML 100 ML IVPB SCH ×4 (05:37→23:55)
[2019-02-07] MEDS: ENOXAPARIN 40 MG/0.4ML SYR SC SCH (08:48)
[2019-02-07] MEDS: LEVETIRACETAM 500 MG/100 ML 100 ML IVPB SCH ×2 (08:48→20:26)
[2019-02-07] MEDS: PANTOPRAZOLE SOD 40 MG IV VIAL IVP SCH (08:48)
--- NOTE | 2019-02-07 14:59 | General Surgery Progress Note ---
Subjective Progress Notes Subjective pt seen this am. ambulating. no flatus or bm. no vomiting. Physical Exam Vital Signs Date Time Temp Pulse Resp B/P (MAP) Pulse Ox O2 Delivery O2 Flow Rate FiO2 02/07/19 13:10 16 93 02/07/19 11:01 98.7 68 115/63 (80) Room Air Intake and Output 02/07/19 07:03 Intake Total 1670 ml Output Total 600 ml Balance 1070 ml Intake Oral 100 ml IV Total 1570 ml Output Urine Total 600 ml # Voids 75 General Appearance: No Acute Distress Cardiovascular: Other (reg rate) GI: Other (abd soft, inc c/d/i) Result Diagram: 02/06/1951602/06/19516 Assessment and Plan Problems: (1) Small bowel obstruction Status: Acute Assessment & Plan: 02/03/19: Will admit for NGT decompression and IV hydration. Gastrograffin SBFT in am. Recheck labs in am. 02/04/19: Patient reports NGT came out last night when he sneezed. Refused to have another put in. No further vomiting, but remains nauseated without any flatus or BM. He did not like morphine, so switched to Dilaudid for his chronic back pain for which he routinely takes 6 [place] per day for past several years. He does appear better hydrated with IVF's with creatinine back to 1.0 from 1.6. Urine output improved. He has no peritoneal signs at this time. WBC is WNL. The SBFT is in progress. I discussed in detail with Seven that if this does not resolve with nonoperative management that surgery will indeed be needed. We discussed the typical causes of mechanical obstruction as well as the fact his chronic narcotic use may be playing a role. I encouraged him to try to walk several times today. Will continue close observation through out the day. If no contrast to colon by 8 hours or if peritoneal signs develop then I will recommend exploratory laparotomy. 02/04/19: Gastrografin SBFT carried out to 71/2 hours without contrast to colon. In light of this finding and increased tenderness I have recommended to Seven that we proceed with exploratory laparotomy, lysis of adhesions, and indicated procedures. He understands this may include the need for a bowel resection. I have reviewed the procedure, risks, and possible complications in detail with him. He understands he will have a NG tube and David catheter in place when he awakens from anesthesia. Informed consent obtained. OR crew and anesthesia notified by refrigeration houseman. Zosyn 4.5 grams IVPB ordered. 02/05/19: POD#1 s/p exp lap with lysis of adhesions. Doing well. Minimal NG output so NGT removed. Urine output adequate but will leave David for one more day.. Encouraged to use IS and to get OOB and ambulate at least QID. Recheck labs in am. 02/06/19: POD#2 Continues to improve. No BM yet. Will limit to clear liquids until having bowel function. Will DC David. Decrease IVF to 100 ml/hr. Encouraged again today to increase activity and ambulate at least 4 times today. Encouraged to continue to use IS. Labs look good. I explained to patient that Dr. Huizar will be taking over for me tomorrow. 02/07/19: alva give clears sparingly. ambulate. pain control. (2) Seizure disorder Status: Chronic Assessment & Plan: Continue his Keppra IV until able to take PO again. Exam Sepsis Risk: No Definite Risk AKIL HUIZAR Feb 07, 2019 14:59
[2019-02-07] MEDS: HYDROMORPHON PCA10MG/50ML(CII) 10 MG/50 ML PLAST..BAG IV PRN (21:38)
[2019-02-08] MEDS: KCL/DNS 20 MEQ/1000 ML PREMIX 1,000 ML IV PRN ×3 (00:48→23:40)
[2019-02-08 02:39] VITALS: BP 139/81
[2019-02-08] MEDS: ACETAMINOPHEN(*)1000 MG/100 ML 100 ML IVPB SCH ×4 (06:15→23:40)
[2019-02-08 07:09] VITALS: BP 157/102
[2019-02-08] MEDS: ENOXAPARIN 40 MG/0.4ML SYR SC SCH (09:52)
[2019-02-08] MEDS: LEVETIRACETAM 500 MG/100 ML 100 ML IVPB SCH ×2 (09:52→20:58)
[2019-02-08] MEDS ORDERED: NS(*) 0.9% 250 ML BAG 250 ML ONE (09:52)
[2019-02-08] MEDS: PANTOPRAZOLE SOD 40 MG IV VIAL IVP SCH (09:52)
[2019-02-08 10:26] VITALS: BP 149/87
--- NOTE | 2019-02-08 13:57 | RADIOLOGY IMAGING REPORT ---
FACILITY: [facility] [place] PATIENT NAME: Seven Gold : 1945 MR: [id number] V: [id number] EXAM DATE: ORDERING PHYSICIAN: AKIL DELGADO TECHNOLOGIST: [place] [facility] [place] : 1945 Visit/Account:[id number] Date of Sevice: 02/08/2019 Supine abdomen, one view. HISTORY: Distended abdomen. COMPARISON: 02/04/2019. Two images were obtained. Metal clips and other objects project on the abdomen and pelvis. Phleboli ths are present in the true pelvis. Multiple dilated gas-filled loops of small bowel are present in the upper abdomen, midabdomen, and lower abdomen. Contrast material and gas are present in the right colon. Small amounts of gas and stool are scattered in the left colon. IMPRESSION: Persistent dilated small bowel loops suggesting a partial mechanical bowel obstruction, or adynamic i leus. Report Dictated By: Lauri Alfaro MD at 02/08/2019 1:45 PM Report E-Signed By: Lauri Alfaro MD at 02/08/2019 1:49 PM WSN:[id number]
[2019-02-08 14:51] VITALS: BP 128/85
--- NOTE | 2019-02-08 18:20 | General Surgery Progress Note ---
Subjective Progress Notes Subjective no flatus or bm. andria clears. feels bloated. Physical Exam Vital Signs Date Time Temp Pulse Resp B/P (MAP) Pulse Ox O2 Delivery O2 Flow Rate FiO2 02/08/19 16:20 20 93 02/08/19 14:51 98.7 79 128/85 (99) Room Air 02/08/19 10:26 1.0 Intake and Output 02/08/19 07:03 Intake Total 1270 ml Output Total 525 ml Balance 745 ml Intake Oral 120 ml IV Total 1150 ml Output Urine Total 525 ml # Voids 4 General Appearance: No Acute Distress Cardiovascular: Other (reg rate) GI: Other (soft, distended, inc c/d/i) Result Diagram: 02/06/1951602/06/19516 Assessment and Plan Problems: (1) Small bowel obstruction Status: Acute Assessment & Plan: 02/03/19: Will admit for NGT decompression and IV hydration. Gastrograffin SBFT in am. Recheck labs in am. 02/04/19: Patient reports NGT came out last night when he sneezed. Refused to have another put in. No further vomiting, but remains nauseated without any flatus or BM. He did not like morphine, so switched to Dilaudid for his chronic back pain for which he routinely takes 6 [place] per day for past several years. He does appear better hydrated with IVF's with creatinine back to 1.0 from 1.6. Urine output improved. He has no peritoneal signs at this time. WBC is WNL. The SBFT is in progress. I discussed in detail with Seven that if this does not resolve with nonoperative management that surgery will indeed be needed. We discussed the typical causes of mechanical obstruction as well as the fact his chronic narcotic use may be playing a role. I encouraged him to try to walk several times today. Will continue close observation through out the day. If no contrast to colon by 8 hours or if peritoneal signs develop then I will recommend exploratory laparotomy. 02/04/19: Gastrografin SBFT carried out to 71/2 hours without contrast to colon. In light of this finding and increased tenderness I have recommended to Seven that we proceed with exploratory laparotomy, lysis of adhesions, and indicated procedures. He understands this may include the need for a bowel resection. Damon andrew reviewed the procedure, risks, and possible complications in detail with him. He understands he will have a NG tube and David catheter in place when he awakens from anesthesia. Informed consent obtained. OR crew and anesthesia notified by pump house technician. Zosyn 4.5 grams IVPB ordered. 02/05/19: POD#1 s/p exp lap with lysis of adhesions. Doing well. Minimal NG output so NGT removed. Urine output adequate but will leave David for one more day.. Encouraged to use IS and to get OOB and ambulate at least QID. Recheck labs in am. 02/06/19: POD#2 Continues to improve. No BM yet. Will limit to clear liquids until having bowel function. Will DC David. Decrease IVF to 100 ml/hr. Encoura ged again today to increase activity and ambulate at least 4 times today. Encouraged to continue to use IS. Labs look good. I explained to patient that Dr. Huizar will be taking over for me tomorrow. 02/07/19: alva give clears sparingly. ambulate. pain control. 02/08/19: no flatus or bm. cont clears. kub. may give gastrograffin tomorrow. (2) Seizure disorder Status: Chronic Assessment & Plan: Continue his Keppra IV until able to take PO again. Exam Sepsis Risk: No Definite Risk AKIL HUIZAR Feb 08, 2019 18:20
[2019-02-08 18:44] VITALS: BP 148/81
[2019-02-08] MEDS: HYDROMORPHON PCA10MG/50ML(CII) 10 MG/50 ML PLAST..BAG IV PRN (18:48)
--- NOTE | 2019-02-08 18:54 | NUR ---
50 ML start. Addendum: 02/08/19 at 1855 by NOMAN CARROLL RN Amended: Links added.
[2019-02-08 23:05] VITALS: BP 140/94
[2019-02-08] MEDS: ZOLPIDEM TARTRATE 5 MG TAB PO PRN (23:40)
[2019-02-09] MEDS: ZOLPIDEM TARTRATE 5 MG TAB PO PRN ×2 (02:05→23:46)
[2019-02-09 04:05] VITALS: BP 157/83
[2019-02-09 04:55] LABS: PLATELET COUNT, AUTOMATED 223 K/uL (150-450)
[2019-02-09] MEDS: ACETAMINOPHEN(*)1000 MG/100 ML 100 ML IVPB SCH (06:12)
[2019-02-09 08:17] VITALS: BP 142/88
[2019-02-09] MEDS: ENOXAPARIN 40 MG/0.4ML SYR SC SCH (08:50)
[2019-02-09] MEDS: PANTOPRAZOLE SOD 40 MG IV VIAL IVP SCH (08:50)
[2019-02-09] MEDS: LEVETIRACETAM 500 MG/100 ML 100 ML IVPB SCH ×2 (08:50→20:22)
[2019-02-09] MEDS ORDERED: HYDROmorphone HCL 2 MG/ML SDV IVP PRN (10:45)
--- NOTE | 2019-02-09 10:46 | Medical Nutrition Therapy ---
Nutrition Anthropometrics Height (Inches): 72.00 Height (Calculated Centimeters: 182.760649 Weight (Pounds): 169 Weight (Calculated Kilograms): 76.657 BMI: 22.9 [place] Nutrition Score: Adequate [place] Nutrition Risk Score: 21 Dietary Referral Nutrition Risk Factors: Nutrition Risk Comment: Physical Findings Physical Appearance: 22.9kg/m2 Skin Appearance Skin Appearance: Edema Edema Location Modifier: Edema Location: Type of Edema: Degree of Edema: Gastrointestinal Symptoms GI Symtoms: Change in Bowel Pattern Tube Present: NG Bowel Sounds: Recent Bowel Pattern: Stool Characteristics: Nutritional Diagnosis Nutritional Risk Acuity 1: GI Obstruction Past Medical History: RIND, gastric bypass, appendectomy, cholecystectomy, seizure disorder, HTH, and GERD. Nutritional Acuity: 1-High Nutrition Diagnosis: Altered GI Function Nutrition Etiology: Physiological Causes Nutrition Problem/Etiology/Sym: Altered GI function as related to physiological causes as evidenced by SBO. Energy Requirement: 6 (m st jeor x 1.1 x1.2) Protein Requirement: 60.8 (0.8 g/kg) Fluid Requirement: 6 (1ml/1kcal) Diet Type: Clear Liquids, High Calorie/High Protein, NPO/Ice Chips Only Nutrition Intervention: Between meal supplement Diet Comment To [facility]: DELIVER ENSURE CLEAR ON LUNCH OR DINNER TRAY Nutritional Education Nutrition Education Topic: Other Learning Readiness: Interested Teaching Methods: Discussion, Handout Response to Teaching: Verbalize understanding Teaching Recipient: Patient Nutrition Counseling: Provided low fiber nutrition education with goal of preventing bowel obstruction. Nutrition Monitoring & Eval Nutrition Goals: Eat 75-100% Meal Nutrition Follow-Up: Poor Intake Nutrition Monitoring: PO tolerance, diet advancement RD Patient Assessment Time: [address] Assessment Type: RD Re-Assessment Patient Nutrition Acuity: 1-High Follow Up Date: Feb 12, 2019 Nutritional Comment: pt admitted with N/V/obstipation. Dx with small bowel obstruction. Hx of RIND, gastric bypass, appendectomy, cholecystectomy, seizure disorder, HTH, and GERD. Currently NPO/Ice chips only day 1. Pt taking enoxaparin. BUN and creatinine were elevated but have decreased to WNL. CRP of 1.0 is elevated, as is AST of 38. Total protein of 5.8 and albumin of 3.4 are decreased. Monitor for progression of diet. -AKMike 02/06/19-Spoke with pt this afternoon. Pt typically eats 2 meals/day at home with snacks. His typical weight is 168-170 lbs, no recent changes in weight. Spoke with pt about following a low fiber diet and discussed appropriate foods. Will provide diet education handout for low fiber diet prior to discharge. Will continue to monitor bowel function and diet advancement.LOKESH 02/09/19: Spoke with pt this am. Provided handout on low fiber diet, reviewed appropriate foods. Pt currently on clear liquid diet. Bowel sounds faint/distant/distended abdomen per shift assessment. Recieving KCl/Dextrose/NaCL at 100mL/hr. BG ranging from 106-141. Will continue to monitor tolerance to po.TRINO GREGORY Feb 09, 2019 10:46
[2019-02-09] MEDS: APAP/HYDROCODONE 325/7.5 TAB PO PRN ×2 (11:23→16:00)
[2019-02-09] MEDS: FUROSEMIDE 20 MG TAB PO SCH (11:23)
[2019-02-09 11:28] VITALS: BP 160/92
[2019-02-09] MEDS: ONDANSETRON 4 MG/2 ML VIAL IVP PRN ×3 (13:53→22:54)
--- NOTE | 2019-02-09 15:01 | General Surgery Progress Note ---
Subjective Progress Notes Subjective mult bms - diarrhea, andria clears, no n/v. c/o swelling. Physical Exam Vital Signs Date Time Temp Pulse Resp B/P (MAP) Pulse Ox O2 Delivery O2 Flow Rate FiO2 02/09/19 11:28 98.4 60 18 160/92 (114) 93 Room Air 02/08/19 10:26 1.0 Intake and Output 02/09/19 07:03 Intake Total 3067 ml Output Total 300 ml Balance 2767 ml Intake Oral 860 ml IV Total 2207 ml Output Urine Total 300 ml # Voids 1 # Bowel Movements 1 General Appearance: No Acute Distress GI: Other (abd soft, inc c/d/i) Result Diagram: 02/09/1942402/09/19424 Assessment and Plan Problems: (1) Small bowel obstruction Status: Acute Assessment & Plan: 02/03/19: Will admit for NGT decompression and IV hydration. Gastrograffin SBFT in am. Recheck labs in am. 02/04/19: Patient reports NGT came out last night when he sneezed. Refused to have another put in. No further vomiting, but remains nauseated without any flatus or BM. He did not like morphine, so switched to Dilaudid for his chronic back pain for which he routinely takes 6 [place] per day for past several years. He does appear better hydrated with IVF's with creatinine back to 1.0 from 1.6. Urine output improved. He has no peritoneal signs at this time. WBC is WNL. The SBFT is in progress. I discussed in detail with Seven that if this does not resolve with nonoperative management that surgery will indeed be needed. We discussed the typical causes of mechanical obstruction as well as the fact his chronic narcotic use may be playing a role. I encouraged him to try to walk several times today. Will continue close observation through out the day. If no contrast to colon by 8 hours or if peritoneal signs develop then I will recommend exploratory laparotomy. 02/04/19: Gastrografin SBFT carried out to 71/2 hours without contrast to colon. In light of this finding and increased tenderness I have recommended to Seven that we proceed with exploratory laparotomy, lysis of adhesions, and indicated procedures. He understands this may include the need for a bowel resection. I have reviewed the procedure, risks, and possible complications in detail with him. He understands he will have a NG tube and David catheter in place when he awakens from anesthesia. Informed consent obtained. OR crew and anesthesia notified by warehouse clerk. Zosyn 4.5 grams IVPB ordered. 02/05/19: POD#1 s/p exp lap with lysis of adhesions. Doing well. Minimal NG output so NGT removed. Urine output adequate but will leave David for one more day.. Encouraged to use IS and to get OOB and ambulate at least QID. Recheck labs in am. 02/06/19: POD#2 Continues to improve. No BM yet. Will limit to clear liquids until having bowel function. Will DC David. Decrease IVF to 100 ml/hr. Encouraged again today to increase activity and ambulate at least 4 times today. Encouraged to continue to use IS. Labs look good. I explained to patient that Dr. Huizar will be taking over for me tomorrow. 02/07/19: alva give clears sparingly. ambulate. pain control. 02/08/19: no flatus or bm. cont clears. kub. may give gastrograffin tomorrow. 02/09/19: mult bms. advance diet. ambulate. d/c flat folding machine operator. hliv. lasix. (2) Seizure disorder Status: Chronic Assessment & Plan: Continue his Keppra IV until able to take PO again. Exam Sepsis Risk: No Definite Risk AKIL HUIZAR Feb 09, 2019 15:01
[2019-02-09 16:03] VITALS: BP 152/96
[2019-02-09] MEDS: HYDROmorphone HCL 2 MG/ML SDV IVP PRN ×3 (17:42→22:55)
[2019-02-09] MEDS: NS(*) 0.9% 1000 ML BAG 1,000 ML IV PRN (17:42)
[2019-02-09 18:56] VITALS: BP 131/87
[2019-02-09] MEDS: APAP/HYDROCODONE 325/10 TAB PO PRN ×2 (19:36→23:46)
[2019-02-09 23:47] VITALS: BP 145/87
[2019-02-10] MEDS: APAP/HYDROCODONE 325/10 TAB PO PRN ×4 (07:36→20:33)
[2019-02-10] MEDS: ENOXAPARIN 40 MG/0.4ML SYR SC SCH (08:52)
[2019-02-10] MEDS: PANTOPRAZOLE SOD 40 MG IV VIAL IVP SCH (08:53)
[2019-02-10] MEDS: FUROSEMIDE 20 MG TAB PO SCH (08:53)
[2019-02-10] MEDS: LEVETIRACETAM 500 MG/100 ML 100 ML IVPB SCH (08:57)
[2019-02-10] MEDS: NS(*) 0.9% 1000 ML BAG 1,000 ML IV PRN ×2 (09:36→22:49)
[2019-02-10] MEDS ORDERED: LEVE500T73 PO (09:59)
[2019-02-10] MEDS ORDERED: levETIRAcetam 500 MG TAB PO ONE (10:00)
--- NOTE | 2019-02-10 10:40 | General Surgery Progress Note ---
Subjective Progress Notes Subjective small liquid bms. abd pain came on strong last night. vomited yesterday. andria food this am. Physical Exam Vital Signs Date Time Temp Pulse Resp B/P (MAP) Pulse Ox O2 Delivery O2 Flow Rate FiO2 02/10/19 09:09 93 Room Air 02/10/19 05:39 85 2.0 02/09/19 23:47 98.7 16 145/87 (106) Intake and Output 02/10/19 07:03 Intake Total 2401 ml Balance 2401 ml Intake Oral 1020 ml IV Total 1381 ml # Voids 5 # Bowel Movements 2 # Emeses 1 General Appearance: No Acute Distress Cardiovascular: Other (reg rate) GI: Other (abd soft, distended) Result Diagram: 02/09/1942402/09/19424 Assessment and Plan Problems: (1) Small bowel obstruction Status: Acute Assessment & Plan: 02/03/19: Will admit for NGT decompression and IV hydration. Gastrograffin SBFT in am. Recheck labs in am. 02/04/19: Patient reports NGT came out last night when he sneezed. Refused to have another put in. No further vomiting, but remains nauseated without any flatus or BM. He did not like morphine, so switched to Dilaudid for his chronic back pain for which he routinely takes 6 [place] per day for past several years. He does appear better hydrated with IVF's with creatinine back to 1.0 from 1.6. Urine output improved. He has no peritoneal signs at this time. WBC is WNL. The SBFT is in progress. I discussed in detail with Seven that if this does not resolve with nonoperative management that surgery will indeed be needed. We discussed the typical causes of mechanical obstruction as well as the fact his chronic narcotic use may be playing a role. I encouraged him to try to walk several times today. Will continue close observation through out the day. If no contrast to colon by 8 hours or if peritoneal signs develop then I will recommend exploratory laparotomy. 02/04/19: Gastrografin SBFT carried out to 71/2 hours without contrast to colon. In light of this finding and increased tenderness I have recommended to Seven that we proceed with exploratory laparotomy, lysis of adhesions, and indicated procedures. He understands this may include the need for a bowel resection. I have reviewed the procedure, risks, and possible complications in detail with him. He understands he will have a NG tube and David catheter in place when he awakens from anesthesia. Informed consent obtained. OR crew and anesthesia notified by bathhouse attendant. Zosyn 4.5 grams IVPB ordered. 02/05/19: POD#1 s/p exp lap with lysis of adhesions. Doing well. Minimal NG output so NGT removed. Urine output adequate but will leave David for one more day.. Encouraged to use IS and to get OOB and ambulate at least QID. Recheck labs in am. 02/06/19: POD#2 Continues to improve. No BM yet. Will limit to clear liquids until having bowel function. Will DC David. Decrease IVF to 100 ml/hr. Encouraged again today to increase activity and ambulate at least 4 times today. Encouraged to continue to use IS. Labs look good. I explained to patient that Dr. Huizar will be taking over for me tomorrow. 02/07/19: alva give clears sparingly. ambulate. pain control. 02/08/19: no flatus or bm. cont clears. kub. may give gastrograffin tomorrow. 02/09/19: mult bms. advance diet. ambulate. d/c instructor technical training. hliv. lasix. 02/10/19: a few bms - liquid, somewhat small. will do gastrografin study. (2) Seizure disorder Status: Chronic Assessment & Plan: Continue his Keppra IV until able to take PO again. Exam Sepsis Risk: No Definite Risk AKIL HUIZAR Feb 10, 2019 10:40
[2019-02-10] MEDS ORDERED: DIATRIZOATE MEGL/DIATRIZOA SOD 120 ML SOLN PO ONE (10:48)
[2019-02-10 11:51] VITALS: BP 142/89
[2019-02-10] MEDS ORDERED: TEST200V2 IM (15:51)
[2019-02-10] MEDS ORDERED: LAMO100T52 PO (15:51)
[2019-02-10 16:26] VITALS: BP 151/88
--- NOTE | 2019-02-10 16:33 | RADIOLOGY IMAGING REPORT ---
FACILITY: [facility] [place] PATIENT NAME: Seven Gold : 1945 MR: [id number] V: [id number] EXAM DATE: ORDERING PHYSICIAN: AKIL DELGADO TECHNOLOGIST: Location: [facility] Patient: Seven Gold : 1945 Visit/Account:[id number] Date of Sevice: 02/10/2019 XR SMALL BOWEL SERIES Indication: 73-year-old male status post abdominal surgery. Patient with abdominal distention. Note patient has been given Gastrografin today and perhaps on February 04. Images from February 04 show cont rast in the large bowel. Procedure: Following an official timeout documenting the patient's name and type of procedure, a smal l bowel follow-through was performed in standard fashion. Approximately 120 cc of Oral contrast was o rally ingested Sequential imaging was then performed. One of the following dose optimization techniques was utilized in the performance of this exam: Autom ated exposure control; adjustment of the mA and/or kV according to the patient's size; or use of an i terative reconstruction technique. Specific details can be referenced in the facility's radiology f luoroscopy exam operational policy. Comparison study: February 08, 2019 and several prior. No a small bowel series with oral contrast was pe rformed on February 04, 2019. Findings: Life Scientist film: Life Scientist film was not obtained on today's study, but images from February 08, 2019 arnold w contrast in the large bowel. Presumably this was from the small bowel follow-through exam started on February 04. The 2 hour film and 4 are film both show multiple moderately or markedly dilated loops of small bowel . There is contrast throughout the colon. No films earlier than 2 hours were obtained and the findi ngs are suggestive of persistent partial small bowel obstruction. Surgical skin clips are noted over the abdomen. There are surgical clips in the pelvis. IMPRESSION: 1. Today's small bowel follow-through was unfortunately performed without a client development manager film and with cont rast from the small bowel follow-through study of February 04, 2019, still in the colon. 2. An abdominal film from February 08, 2019 shows multiple moderate/markedly dilated loops of small pascale l with contrast in the colon. This presumably represents the patient after the small bowel study fro m February 04, 2019 and before contrast ingested today. 3. Per discussion with the technologist Gastrografin 120 mL was ingested today. There is no client development manager f ilm and no one hour film, but the 2 hour film of today's study shows Gastrografin in dilated loops of small bowel. Contrast in the colon is presumably from earlier studies. 4. Note that on the 4 hour film contrast does appear to pass through small bowel and into the colon but there are persistently dilated loops of small bowel. 5.Small bowel. 5. Over the last several days and today's small bowel follow-through are suggestive of a partial sma ll bowel obstruction and/or ileus Results were called to AKIL DELGADO M.D. At 02/10/2019 4:23 PM. Report Dictated By: Sagar Myers MD at 02/10/2019 4:16 PM Report E-Signed By: Sagar Myers MD at 02/10/2019 4:25 PM WSN:[email or web address]
[2019-02-10 20:09] VITALS: BP 137/86
[2019-02-10] MEDS: levETIRAcetam 500 MG TAB PO SCH (20:33)
[2019-02-11] MEDS: ZOLPIDEM TARTRATE 5 MG TAB PO PRN ×2 (00:33→23:36)
[2019-02-11] MEDS: APAP/HYDROCODONE 325/10 TAB PO PRN ×6 (00:33→23:36)
[2019-02-11 00:34] VITALS: BP 143/84
[2019-02-11 05:12] VITALS: BP 128/82
[2019-02-11 08:57] VITALS: BP 124/70
[2019-02-11] MEDS: FUROSEMIDE 20 MG TAB PO SCH (09:01)
[2019-02-11] MEDS: ENOXAPARIN 40 MG/0.4ML SYR SC SCH (09:01)
[2019-02-11] MEDS: levETIRAcetam 500 MG TAB PO SCH ×2 (09:01→20:47)
[2019-02-11] MEDS: PANTOPRAZOLE SOD 40 MG TABEC PO SCH (09:01)
--- NOTE | 2019-02-11 09:11 | General Surgery Progress Note ---
Subjective Progress Notes Subjective feeling better. liquid bms but not large. feels less abd pressure today. Physical Exam Vital Signs Date Time Temp Pulse Resp B/P (MAP) Pulse Ox O2 Delivery O2 Flow Rate FiO2 02/11/19 05:12 98.3 94 18 128/82 (97) 88 Room Air 02/10/19 20:04 2.0 Intake and Output 02/11/19 07:03 Intake Total 843 ml Output Total 250 ml Balance 593 ml Intake Oral 480 ml IV Total 363 ml Output Urine Total 250 ml # Voids 2 # Bowel Movements 3 # Emeses 1 General Appearance: No Acute Distress Cardiovascular: Other (reg rate) GI: Other (s/nttp, distended) Result Diagram: 02/09/1942402/09/19424 Assessment and Plan Problems: (1) Small bowel obstruction Status: Acute Assessment & Plan: 02/03/19: Will admit for NGT decompression and IV hydration. Gastrograffin SBFT in am. Recheck labs in am. 02/04/19: Patient reports NGT came out last night when he sneezed. Refused to have another put in. No further vomiting, but remains nauseated without any flatus or BM. He did not like morphine, so switched to Dilaudid for his chronic back pain for which he routinely takes 6 [place] per day for past several years. He does appear better hydrated with IVF's with creatinine back to 1.0 from 1.6. Urine output improved. He has no peritoneal signs at this time. WBC is WNL. The SBFT is in progress. I discussed in detail with Seven that if this does not resolve with nonoperative management that surgery will indeed be needed. We discussed the typical causes of mechanical obstruction as well as the fact his chronic narcotic use may be playing a role. I encouraged him to try to walk several times today. Will continue close observation through out the day. If no contrast to colon by 8 hours or if peritoneal signs develop then I will recommend exploratory laparotomy. 02/04/19: Gastrografin SBFT carried out to 71/2 hours without contrast to colon. In light of this finding and increased tenderness I have recommended to Seven that we proceed with exploratory laparotomy, lysis of adhesions, and indicated procedures. He understands this may include the need for a bowel resection. I have reviewed the procedure, risks, and possible complications in detail with him. He understands he will have a NG tube and David catheter in place when he awakens from anesthesia. Informed consent obtained. OR crew and anesthesia notified by superintendent warehouse. Zosyn 4.5 grams IVPB ordered. 02/05/19: POD#1 s/p exp lap with lysis of adhesions. Doing well. Minimal NG output so NGT removed. Urine output adequate but will leave David for one more day.. Encouraged to use IS and to get OOB and ambulate at least QID. Recheck labs in am. 02/06/19: POD#2 Continues to improve. No BM yet. Will limit to clear liquids until having bowel function. Will DC David. Decrease IVF to 100 ml/hr. Encouraged again today to increase activity and ambulate at least 4 times today. Encouraged to continue to use IS. Labs look good. I explained to patient that Dr. Huizar will be taking over for me tomorrow. 02/07/19: alva give clears sparingly. ambulate. pain control. 02/08/19: no flatus or bm. cont clears. kub. may give gastrograffin tomorrow. 02/09/19: mult bms. advance diet. ambulate. d/c environmental services coordinator. hliv. lasix. 02/10/19: a few bms - liquid, somewhat small. will do gastrografin study. 02/11/19: bms but not as large as expected after gastrografin. will check kub and labs. likely ileus but sbo possible. taking in some nutrition po but may need to start iv nutrition. (2) Seizure disorder Status: Chronic Assessment & Plan: Continue his Keppra IV until able to take PO again. Exam Sepsis Risk: No Definite Risk AKIL HUIZAR Feb 11, 2019 09:11
--- NOTE | 2019-02-11 09:15 | RADIOLOGY IMAGING REPORT ---
FACILITY: [facility] [place] PATIENT NAME: Seven Gold : 1945 MR: [id number] V: [id number] EXAM DATE: ORDERING PHYSICIAN: AKIL DELGADO TECHNOLOGIST: Location: [facility] Patient: Seven Gold : 1945 Visit/Account:[id number] Date of Sevice: 02/11/2019 EXAMINATION: KUB 02/11/2019 8:45 AM HISTORY: sbo vs ileus COMPARISON: Small bowel series 02/10/2019 FINDINGS: Gaseous distention of small bowel persists. Enteric contrast is in the colon only, but th e small bowel caliber is greater than the colonic. Right lower quadrant clips. Midline cutaneous stap les. Right upper quadrant cholecystectomy clips. Bony degenerative changes with mild dextroscoliotic lumbar curvature. IMPRESSION: Persistent disproportionate gaseous prominence of small bowel bowel although enteric contrast adminis tered recently has all passed into the colon. Findings would be suggestive of incomplete mechanical s mall bowel obstruction although potentially simply reflect ileus. Report Dictated By: Seven Antunez MD at 02/11/2019 9:02 AM Report E-Signed By: Seven Antunez MD at 02/11/2019 9:07 AM WSN:[id number]
[2019-02-11] MEDS: NS(*) 0.9% 1000 ML BAG 1,000 ML IV PRN (11:14)
[2019-02-11 12:50] LABS: PLATELET COUNT, AUTOMATED 369 K/uL (150-450)
[2019-02-11 15:35] VITALS: BP 140/83
[2019-02-11 20:47] VITALS: BP 152/97
[2019-02-12 01:29] VITALS: BP 155/85
[2019-02-12] MEDS: NS(*) 0.9% 1000 ML BAG 1,000 ML IV PRN ×2 (01:29→14:46)
[2019-02-12] MEDS: ZOLPIDEM TARTRATE 5 MG TAB PO PRN (01:42)
[2019-02-12 07:20] VITALS: BP 156/87
[2019-02-12] MEDS: APAP/HYDROCODONE 325/10 TAB PO PRN ×4 (07:26→20:14)
[2019-02-12] MEDS: ENOXAPARIN 40 MG/0.4ML SYR SC SCH (09:03)
[2019-02-12] MEDS: levETIRAcetam 500 MG TAB PO SCH ×2 (09:03→20:41)
[2019-02-12] MEDS: PANTOPRAZOLE SOD 40 MG TABEC PO SCH (09:03)
[2019-02-12] MEDS: FUROSEMIDE 20 MG TAB PO SCH (09:03)
--- NOTE | 2019-02-12 09:39 | General Surgery Progress Note ---
Subjective Progress Notes Subjective small bms. passing gas. no vomiting. feels like distension is less. Physical Exam Vital Signs Date Time Temp Pulse Resp B/P (MAP) Pulse Ox O2 Delivery O2 Flow Rate FiO2 02/12/19 07:24 93 02/12/19 07:20 98.2 83 16 156/87 (110) Room Air 02/10/19 20:04 2.0 Intake and Output 02/12/19 07:03 Intake Total 2296 ml Balance 2296 ml Intake Oral 840 ml IV Total 1456 ml # Voids 3 # Bowel Movements 2 # Emeses 1 General Appearance: No Acute Distress Cardiovascular: Other (reg rate) GI: Other (soft, less distended) Result Diagram: 02/11/19 1212 02/11/19 1212 Assessment and Plan Problems: (1) Small bowel obstruction Status: Acute Assessment & Plan: 02/03/19: Will admit for NGT decompression and IV hydration. Gastrograffin SBFT in am. Recheck labs in am. 02/04/19: Patient reports NGT came out last night when he sneezed. Refused to have another put in. No further vomiting, but remains nauseated without any flatus or BM. He did not like morphine, so switched to Dilaudid for his chronic back pain for which he routinely takes 6 [place] per day for past several years. He does appear better hydrated with IVF's with creatinine back to 1.0 from 1.6. Urine output improved. He has no peritoneal signs at this time. WBC is WNL. The SBFT is in progress. I discussed in detail with Seven that if this does not resolve with nonoperative management that surgery will indeed be needed. We discussed the typical causes of mechanical obstruction as well as the fact his chronic narcotic use may be playing a role. I encouraged him to try to walk several times today. Will continue close observation through out the day. If no contrast to colon by 8 hours or if peritoneal signs develop then I will recommend exploratory laparotomy. 02/04/19: Gastrografin SBFT carried out to 71/2 hours without contrast to colon. In light of this finding and increased tenderness I have recommended to Seven that we proceed with exploratory laparotomy, lysis of adhesions, and indicated procedures. He understands this may include the need for a bowel resection. I have reviewed the procedure, risks, and possible complications in detail with him. He understands he will have a NG tube and David catheter in place when he awakens from anesthesia. Informed consent obtained. OR crew and anesthesia notified by household chores. Zosyn 4.5 grams IVPB ordered. 02/05/19: POD#1 s/p exp lap with lysis of adhesions. Doing well. Minimal NG output so NGT removed. Urine output adequate but will leave David for one more day.. Encouraged to use IS and to get OOB and ambulate at least QID. Recheck labs in am. 02/06/19: POD#2 Continues to improve. No BM yet. Will limit to clear liquids until having bowel function. Will DC David. Decrease IVF to 100 ml/hr. En couraged again today to increase activity and ambulate at least 4 times today. Encouraged to continue to use IS. Labs look good. I explained to patient that Dr. Huizar will be taking over for me tomorrow. 02/07/19: alva give clears sparingly. ambulate. pain control. 02/08/19: no flatus or bm. cont clears. kub. may give gastrograffin tomorrow. 02/09/19: mult bms. advance diet. ambulate. d/c management engineer. hliv. lasix. 02/10/19: a few bms - liquid, somewhat small. will do gastrografin study. 02/11/19: bms but not as large as expected after gastrografin. will check kub and labs. likely ileus but sbo possible. taking in some nutrition po but may need to start iv nutrition. 02/12/19: small bms, flatus. soft diet. ivf. ambulate. (2) Seizure disorder Status: Chronic Assessment & Plan: Continue his Keppra IV until able to take PO again. Exam Sepsis Risk: No Definite Risk AKIL HUIZAR Feb 12, 2019 09:39
[2019-02-12 11:45] VITALS: BP 155/92
--- NOTE | 2019-02-12 14:30 | Medical Nutrition Therapy ---
Nutrition Anthropometrics Height (Inches): 72.00 Height (Calculated Centimeters: 182.107259 Weight (Pounds): 185 Weight (Calculated Kilograms): 83.915 BMI: 22.9 [place] Nutrition Score: Probably Inadequate [place] Nutrition Risk Score: 18 Dietary Referral Nutrition Risk Factors: Nutrition Risk Comment: Physical Findings Physical Appearance: 22.9kg/m2 Skin Appearance Skin Appearance: Edema Edema Location Modifier: Edema Location: Type of Edema: Degree of Edema: Gastrointestinal Symptoms GI Symtoms: Change in Bowel Pattern Tube Present: NG Bowel Sounds: Recent Bowel Pattern: Stool Characteristics: Nutrition/Food History Poor Nutritional Diagnosis Nutritional Risk Acuity 1: GI Obstruction Past Medical History: RIND, gastric bypass, appendectomy, cholecystectomy, seizure disorder, HTH, and GERD. Nutritional Acuity: 1-High Nutrition Diagnosis: Altered GI Function Nutrition Etiology: Physiological Causes Nutrition Problem/Etiology/Sym: Altered GI function as related to physiological causes as evidenced by SBO. Energy Requirement: 2045 (m st jeor x 1.1 x1.2) Protein Requirement: 60.8 (0.8 g/kg) Fluid Requirement: 2045 (1ml/1kcal) Diet Type: Clear Liquids, High Calorie/High Protein, NPO/Ice Chips Only Nutrition Intervention: Between meal supplement Nutrition Monitoring & Eval Nutrition Goals: Eat 75-100% Meal Nutrition Follow-Up: Poor Intake Nutrition Monitoring: Intake, Tolerance to PO, Weight RD Patient Assessment Time: [address] Assessment Type: RD Re-Assessment Patient Nutrition Acuity: 1-High Follow Up Date: Feb 12, 2019 Nutritional Comment: pt admitted with N/V/obstipation. Dx with small bowel obstruction. Hx of RIND, gastric bypass, appendectomy, cholecystectomy, seizure disorder, HTH, and GERD. Currently NPO/Ice chips only day 1. Pt taking enoxaparin. BUN and creatinine were elevated but have decreased to WNL. CRP of 1.0 is elevated, as is AST of 38. Total protein of 5.8 and albumin of 3.4 are decreased. Monitor for progression of diet. -DANISH 02/06/19-Spoke with pt this afternoon. Pt typically eats 2 meals/day at home with snacks. His typical weight is 168-170 lbs, no recent changes in weight. Spoke with pt about following a low fiber diet and discussed appropriate foods. Will provide diet education handout for low fiber diet prior to discharge. Will continue to monitor bowel function and diet advancement.LOKESH 02/09/19: Spoke with pt this am. Provided handout on low fiber diet, reviewed appropriate foods. Pt currently on clear liquid diet. Bowel sounds faint/distant/distended abdomen per shift assessment. Recieving KCl/Dextrose/NaCL at 100mL/hr. BG ranging from 106-141. Will continue to monitor tolerance to po.LOKESH 02/12/19: Spoke with pt and this am. Pt states appetite continues to be poor, foods don't taste right. Discussed different dinner ideas for him to try. Recommended ordering 3-4 items each time so he can find something that tastes ok. Currently on Medical Liquid/GI Soft. Tender abdomen per shift assessment. Reviewed meal intakes and he has very limited food intake since his admit on 02/03/19. Wt has increased from 169 lbs on admit to 185lbs 02/12/19. Currently recieving 75mL/hr NS, no edema reported. Will continue to monitor tolerance/intake and encourage intake and recommend appropriate foods. Pt may benefit from TPN as PO intake is limited.TRINO GREGORY Feb 12, 2019 14:30
[2019-02-12 19:48] VITALS: BP 140/90
[2019-02-12] MEDS: DOCUSATE SODIUM 100 MG CAP PO SCH (20:41)
[2019-02-12 23:11] VITALS: BP 142/89
[2019-02-13] MEDS: ZOLPIDEM TARTRATE 5 MG TAB PO PRN ×3 (00:12→23:34)
[2019-02-13] MEDS: APAP/HYDROCODONE 325/10 TAB PO PRN ×6 (00:13→21:49)
[2019-02-13 02:40] VITALS: BP 118/77
[2019-02-13] MEDS: NS(*) 0.9% 1000 ML BAG 1,000 ML IV PRN ×2 (04:33→17:36)
--- NOTE | 2019-02-13 07:24 | General Surgery Progress Note ---
Subjective Progress Notes Subjective andria liquids well and some food. no n/v. pain controlled. +flatus. Physical Exam Vital Signs Date Time Temp Pulse Resp B/P (MAP) Pulse Ox O2 Delivery O2 Flow Rate FiO2 02/13/19 02:40 98.8 73 16 118/77 (91) 91 Room Air 02/10/19 20:04 2.0 Intake and Output 02/13/19 07:03 Intake Total 2189 ml Balance 2189 ml Intake Oral 240 ml IV Total 1949 ml # Voids 3 # Bowel Movements 1 General Appearance: No Acute Distress Cardiovascular: Other (reg rate) GI: Other (abd soft) Result Diagram: 02/11/19 1212 02/11/19 1212 Assessment and Plan Problems: (1) Small bowel obstruction Status: Acute Assessment & Plan: 02/03/19: Will admit for NGT decompression and IV hydration. Gastrograffin SBFT in am. Recheck labs in am. 02/04/19: Patient reports NGT came out last night when he sneezed. Refused to have another put in. No further vomiting, but remains nauseated without any flatus or BM. He did not like morphine, so switched to Dilaudid for his chronic back pain for which he routinely takes 6 [place] per day for past several years. He does appear better hydrated with IVF's with creatinine back to 1.0 from 1.6. Urine output improved. He has no peritoneal signs at this time. WBC is WNL. The SBFT is in progress. I discussed in detail with Seven that if this does not resolve with nonoperative management that surgery will indeed be needed. We discussed the typical causes of mechanical obstruction as well as the fact his chronic narcotic use may be playing a role. I encouraged him to try to walk several times today. Will continue close observation through out the day. If no contrast to colon by 8 hours or if peritoneal signs develop then I will rec ommend exploratory laparotomy. 02/04/19: Gastrografin SBFT carried out to 71/2 hours without contrast to colon. In light of this finding and increased tenderness I have recommended to Sevne that we proceed with exploratory laparotomy, lysis of adhesions, and indicated procedures. He understands this may include the need for a bowel resection. I have reviewed the procedure, risks, and possible complications in detail with him. He understands he will have a NG tube and David catheter in place when he awakens from anesthesia. Informed consent obtained. OR crew and anesthesia notified by housecalls nurse. Zosyn 4.5 grams IVPB ordered. 02/05/19: POD#1 s/p exp lap with lysis of adhesions. Doing well. Minimal NG output so NGT removed. Urine output adequate but will leave David for one more day.. Encouraged to use IS and to get OOB and ambulate at least QID. Recheck labs in am. 02/06/19: POD#2 Continues to improve. No BM yet. Will limit to clear liquids until having bowel function. Will DC David. Decrease IVF to 100 ml/hr. Encouraged again today to increase activity and ambulate at least 4 times today. Encouraged to continue to use IS. Labs look good. I explained to patient that Dr. Huizar will be taking over for me tomorrow. 02/07/19: alva give clears sparingly. ambulate. pain control. 02/08/19: no flatus or bm. cont clears. kub. may give gastrograffin tomorrow. 02/09/19: mult bms. advance diet. ambulate. d/c insurance verification representative. hliv. lasix. 02/10/19: a few bms - liquid, somewhat small. will do gastrografin study. 02/11/19: bms but not as large as expected after gastrografin. will check kub and labs. likely ileus but sbo possible. taking in some nutrition po but may need to start iv nutrition. 02/12/19: small bms, flatus. soft diet. ivf. ambulate. 02/13/19: flatus overnight. andria liquids and some food. would like to try meat. will give reg diet. milk of mag. reglan. pt ambulating well. (2) Seizure disorder Status: Chronic Assessment & Plan: Continue his Keppra IV until able to take PO again. Exam Sepsis Risk: No Definite Risk AKIL HUIZAR Feb 13, 2019 07:24
[2019-02-13 08:17] VITALS: BP 133/79
[2019-02-13] MEDS: levETIRAcetam 500 MG TAB PO SCH ×2 (08:41→20:45)
[2019-02-13] MEDS: MAGNESIUM HYDROXIDE* 30ML UDCP PO SCH ×2 (08:41→20:46)
[2019-02-13] MEDS: PANTOPRAZOLE SOD 40 MG TABEC PO SCH (08:41)
[2019-02-13] MEDS: DOCUSATE SODIUM 100 MG CAP PO SCH ×2 (08:41→20:45)
[2019-02-13] MEDS: ENOXAPARIN 40 MG/0.4ML SYR SC SCH (08:42)
[2019-02-13] MEDS: METOCLOPRAMIDE 10 MG/2 ML SDV IVP SCH ×3 (11:32→23:34)
[2019-02-13 13:28] VITALS: BP 156/97
[2019-02-13 17:38] VITALS: BP 141/85
[2019-02-13 23:52] VITALS: BP 152/87
[2019-02-14] MEDS: ZOLPIDEM TARTRATE 5 MG TAB PO PRN (00:25)
[2019-02-14] MEDS: APAP/HYDROCODONE 325/10 TAB PO PRN ×3 (02:27→10:38)
[2019-02-14 05:28] VITALS: BP 150/80
[2019-02-14] MEDS: METOCLOPRAMIDE 10 MG/2 ML SDV IVP SCH ×2 (05:37→11:31)
[2019-02-14] MEDS: NS(*) 0.9% 1000 ML BAG 1,000 ML IV PRN (05:37)
[2019-02-14 07:50] VITALS: BP 143/96
[2019-02-14] MEDS: ENOXAPARIN 40 MG/0.4ML SYR SC SCH ×2 (09:00→09:05)
[2019-02-14] MEDS: DOCUSATE SODIUM 100 MG CAP PO SCH (09:04)
[2019-02-14] MEDS: MAGNESIUM HYDROXIDE* 30ML UDCP PO SCH (09:05)
[2019-02-14] MEDS: levETIRAcetam 500 MG TAB PO SCH (09:05)
[2019-02-14] MEDS: PANTOPRAZOLE SOD 40 MG TABEC PO SCH (09:05)
[2019-02-14] MEDS ORDERED: HYDR-627 PO (11:02)
--- NOTE | 2019-02-14 11:04 | Hospitalist Depart ---
Discharge Summary Reason for Hosp/Final Diag: (1) Small bowel obstruction Status: Acute Hospital Course & Plan: 02/03/19: Will admit for NGT decompression and IV hydration. Gastrograffin SBFT in am. Recheck labs in am. 02/04/19: Patient reports NGT came out last night when he sneezed. Refused to have another put in. No further vomiting, but remains nauseated without any flatus or BM. He did not like morphine, so switched to Dilaudid for his chronic back pain for which he routinely takes 6 [place] per day for past several years. He does appear better hydrated with IVF's with creatinine back to 1.0 from 1.6. Urine output improved. He has no peritoneal signs at this time. WBC is WNL. The SBFT is in progress. I discussed in detail with Seven that if this does not resolve with nonoperative management that surgery will indeed be needed. We discussed the typical causes of mechanical obstruction as well as the fact his chronic narcotic use may be playing a role. I encouraged him to try to walk several times today. Will continue close observation through out the day. If no contrast to colon by 8 hours or if peritoneal signs develop then I will recommend exploratory laparotomy. 02/04/19: Gastrografin SBFT carried out to 71/2 hours without contrast to colon. In light of this finding and increased tenderness I have recommended to Seven that we proceed with exploratory laparotomy, lysis of adhesions, and indicated procedures. He understands this may include the need for a bowel resection. I have reviewed the procedure, risks, and possible complications in detail with him. He understands he will have a NG tube and David catheter in place when he awakens from anesthesia. Informed consent obtained. OR crew and anesthesia notified by warehouse shipping clerk. Zosyn 4.5 grams IVPB ordered. 02/05/19: POD#1 s/p exp lap with lysis of adhesions. Doing well. Minimal NG output so NGT removed. Urine output adequate but will leave David for one more day.. Encouraged to use IS and to get OOB and ambulate at least QID. Recheck labs in am. 02/06/19: POD#2 Continues to improve. No BM yet. Will limit to clear liquids until having bowel function. Will DC David. Decrease IVF to 100 ml/hr. Enco uraged again today to increase activity and ambulate at least 4 times today. Encouraged to continue to use IS. Labs look good. I explained to patient that Dr. Huizar will be taking over for me tomorrow. 02/07/19: alva give clears sparingly. ambulate. pain control. 02/08/19: no flatus or bm. cont clears. kub. may give gastrograffin tomorrow. 02/09/19: mult bms. advance diet. ambulate. d/c superintendent gas distribution. hliv. lasix. 02/10/19: a few bms - liquid, somewhat small. will do gastrografin study. 02/11/19: bms but not as large as expected after gastrografin. will check kub and labs. likely ileus but sbo possible. taking in some nutrition po but may need to start iv nutrition. 02/12/19: small bms, flatus. soft diet. ivf. ambulate. 02/13/19: flatus overnight. andria liquids and some food. would like to try meat. will give reg diet. milk of mag. reglan. pt ambulating well. 02/14/19: doing well. mult large bms. andria po. d/c home. (2) Seizure disorder Status: Chronic Hospital Course & Plan: Continue his Keppra IV until able to take PO again. Departure Weight (Pounds): 185 Result Diagram: 02/11/19 1212 02/11/19 1212 Condition: Improved Discharge Instructions Home Meds Active Scripts Hydrocodone Bit/Acetaminophen (NORCO 10-325 TABLET) 1 Each Tablet, 1 EACH PO Q6H PRN for PAIN, #30 TAB Prov:AKIL HUIZAR 02/14/19 Reported Medications Lamotrigine (LAMOTRIGINE) 100 Mg Tablet, 1 TAB PO BID 02/10/19 Testosterone Enanthate (TESTOSTERONE ENANTHATE) 200 Mg/1 Ml Vial, 1 ML IM Q3WK 02/10/19 Levetiracetam (LEVETIRACETAM) 500 Mg Tablet, 1000 MG PO BID 02/10/19 Tamsulosin Hcl (FLOMAX) 0.4 Mg Cap.er.24h, 0.4 MG PO QDAY, CAP 02/04/19 Doxepin Hcl (DOXEPIN HCL) 10 Mg Capsule, 1-5 CAP PO HS PRN for INSOMNIA, CAPSULE DO NOT TAKE ON NIGHTS YOU TAKE AMBIEN 02/04/19 Zolpidem Tartrate (AMBIEN) 10 Mg Tablet, 0.5-1 TAB PO QHS PRN for INSOMNIA, TAB 02/04/19 Zolpidem Tartrate (ZOLPIDEM TARTRATE ER) 12.5 Mg Tab.mphase, 1 TAB PO QHS PRN for INSOMNIA, TAB 02/04/19 Acetaminophen/Hydrocodone (HYDROCODON-ACETAMINOPHN 10-325) 1 Each Tab, 1-2 EACH PO Q4H PRN for PAIN, TAB 02/11/16 Levetiracetam (KEPPRA) 750 Mg Tablet, 750 MG PO PRN, TAB 02/11/16 Discontinued Reported Medications Lamotrigine (LAMOTRIGINE) 100 Mg Tab.er.24, 100 MG PO BID 02/04/19 Diet: Regular Activity: No Heavy Lifting Special Instructions: no lifting more than 15 lbs for 6 wks. take stool softener and laxative as needed. ok to shower. f/u dr. natalee huizar 1 wk ([phone]). Venous Thromboembolism Antithrombotics Is Pt On Any Antithrombotics?: AKIL Camargo Feb 14, 2019 11:04
== END 2019-02-14 14:10 | disposition home or self-care (01) | DRG 336 ==
LOC: ER 08:20 → MED 11:44
PROVIDERS: ADMIT Surgery; ATTEND Surgery
PROC: 0D9670Z Drainage of Stomach with Drainage Device, Via Natural or Artificial Opening (ICD-10-PCS; 2019-02-03)
PROC: 0DN80ZZ Release Small Intestine, Open Approach (ICD-10-PCS; principal; 2019-02-04 18:08)
DX: K56.50 Intestinal adhesions [bands], unspecified as to partial versus complete obstruction (principal); G40.109 Localization-related (focal) (partial) symptomatic epilepsy and epileptic syndromes with simple partial seizures, not intractable, without status epilepticus; Z90.49 Acquired absence of other specified parts of digestive tract; Z98.84 Bariatric surgery status
CPT/HCPCS: 36415; 71045; 74018; 74019; 74177; 74250; 81001; 82040; 82247; 82310; 82374; 82435; 82565; 82947; 83605; 83690; 83735; 84075; 84100; 84132; 84155; 84295; 84450; 84460; 84520; 85025; 86140; 96361; 96374; 96375; 99285; C9113; J0131; J0330; J1100; J1170; J1650; J1953; J2001; J2175; J2270; J2405; J2704; J2765; J3010; J3480; J3490; J7030; J7050; Q9967